=== PATIENT | male | born 1930 | race African-American/Black ===

== ENCOUNTER 2016-12-23 09:15 | Inpatient (IN) | payer MEDICARE, BC ==
[~2016-12-23] VITALS: Ht 165.1 cm; Wt 54.9 kg
[~2016-12-23 09:15] MED LIST: AMLO5TAB4 PO; ASPI-1035 PO; AZOPT EACHEYE; CLOP75TA33 PO; COR25 PO; DUTA0.5C2 PO; ISOS60TA4 PO; OMEP40CA34 PO; ROSU5TAB3 PO; TELM80TA3 PO
[2016-12-23] MEDS ORDERED: SODIUM CHLORIDE 0.9% 1,000 ML IV ONE (09:27)
[2016-12-23 10:07] LABS: CHLORIDE 101 mEq/L (98-107); INDEX HEMOLYSI 1 (1-3); INDEX ICTERIC 1 (1-4); INDEX LIPEMIC 1 (1-3)
[2016-12-23 10:08] LABS: DIFFERENTIAL COMMENT 1; HEMATOCRIT. 21.6 % (42.0-52.0); HEMOGLOBIN. 7.2 g/dL (14.0-18.0); MEAN CORPUSCULAR HGB CONC 33.4 g/dL (31.0-37.0); MEAN CORPUSCULAR VOLUME 86.9 fL (80.0-94.0); MEAN PLATELET VOLUME 8.4 fl (7.4-10.4); PLATELET 251 x1000/uL (130-400); RED BLOOD CELL COUNT 2.48 mill/uL (4.7-6.1); RED CELL DISTRIBUTION WIDTH 17.3 % (11.6-14.6); WHITE BLOOD COUNT 14.1 x1000/uL (4.5-11.0)
[2016-12-23 10:10] LABS: ALBUMIN 1.9 g/dL (3.4-5.0); ANION GAP 14; CALCIUM 8.1 mg/dL (8.5-10.1); CARBON DIOXIDE 27 mEq/L (21-32); INR 1.2; UREA NITROGEN BLOOD 47 mg/dL (7-21)
[2016-12-23 10:13] LABS: AMMONIA 20 uMol/L (<32)
[2016-12-23 10:18] LABS: ALANINE AMINOTRANSFERASE 14 IU/L (13-61); eGFR 19 mL/min (>60)
[2016-12-23 10:43] LABS: PLATELET ESTIMATE NORMAL; ROULEAUX 1+
[2016-12-23 10:44] LABS: ANISOCYTOSIS 1+
[2016-12-23 10:57] LABS: BG BASE EXCESS 3.9 mmol/L (-2.0-2.0); BG CARBOXYHEMOGLOBIN 0.3 % (0.5-1.5); BG DEOXYHEMOGLOBIN 0.6 % (0.0-5.0); BG FRACTION INSPIRED OXYGEN 100; BG HCO3 ACT 26.7 mmol/L (22.0-26.0); BG METHEMOGLOBIN 0.6 % (0.0-1.5); BG OXYGEN SATURATION 99.4 % (92.0-98.5); BG OXYHEMOGLOBIN 98.5 % (94.0-97.0); BG PCO2 32.3 mmHg (35.0-45.0); BG PH 7.535 (7.350-7.450); BG PO2 422.7 mmHg (75.0-100.0); BG SAMPLE SITE LEFT BRACHIAL; BG TOTAL HEMOGLOBIN 7.4 g/dL (12.0-18.0); BG VENT MODE MASK - NRB
[2016-12-23 18:48] VITALS: BP 106/62
[2016-12-23 19:30] VITALS: BP 106/40
[2016-12-23 20:00] VITALS: BP 101/50
[2016-12-23 22:41] VITALS: BP 91/59
[2016-12-23 22:56] VITALS: BP 97/50
[2016-12-23 23:56] VITALS: BP 108/55
[2016-12-24] VITALS (10 sets, daily range): BP systolic 91–118; BP diastolic 45–60
[2016-12-24 07:22] LABS: BASOPHILS % 0.5 % (0.0-2.0); EOSINOPHILS % 3.3 % (0.0-5.0); HEMATOCRIT. 26.6 % (42.0-52.0); LYMPHOCYTES % 10.8 % (20.0-50.0); MEAN CORPUSCULAR HEMOGLOBIN 28.8 pg (28.0-32.0); MEAN CORPUSCULAR HGB CONC 33.8 g/dL (31.0-37.0); MEAN CORPUSCULAR VOLUME 85.3 fL (80.0-94.0); MEAN PLATELET VOLUME 8.8 fl (7.4-10.4); MONOCYTES % 11.5 % (2.0-8.0); NEUTROPHILS % 73.9 % (40.0-76.0); PLATELET 178 x1000/uL (130-400); RED BLOOD CELL COUNT 3.12 mill/uL (4.7-6.1); WHITE BLOOD COUNT 11.8 x1000/uL (4.5-11.0)
[2016-12-24 08:03] LABS: CALCIUM 8.4 mg/dL (8.5-10.1)
[2016-12-24] MEDS ORDERED: POTASSIUM CHLORIDE 20MEQ TABLET SR PO SCH (08:45)
[2016-12-24] MEDS ORDERED: NAPROXEN 500MG TABLET PO PRN (08:45)
[2016-12-24] MEDS ORDERED: MORPHINE SULFATE 2 MG/ML CPJ (NOT FOR IM USE) IV PRN ×2 (11:15→14:33)
[2016-12-25] VITALS: BP 113/62
[2016-12-25 04:00] VITALS: BP 118/55
[2016-12-25 08:00] VITALS: BP 101/55
[2016-12-25 12:00] VITALS: BP 120/69
[2016-12-25 16:00] VITALS: BP 113/65
[2016-12-25 18:00] LABS: BG CARBOXYHEMOGLOBIN 0.3 % (0.5-1.5); BG DEOXYHEMOGLOBIN 0.8 % (0.0-5.0); BG HCO3 ACT 24.1 mmol/L (22.0-26.0); BG METHEMOGLOBIN 0.4 % (0.0-1.5); BG OXYGEN SATURATION 99.2 % (92.0-98.5); BG OXYHEMOGLOBIN 98.5 % (94.0-97.0); BG PCO2 37.5 mmHg (35.0-45.0); BG PH 7.426 (7.350-7.450); BG PO2 213.1 mmHg (75.0-100.0); BG SAMPLE SITE RIGHT BRACHIAL; BG VENT MODE NASAL CANNULA
[2016-12-25 20:00] VITALS: BP 106/50
[2016-12-25] MEDS: FOLIC ACID/VITAMIN B COMP W-C TABLET PO SCH (21:48)
[2016-12-25] MEDS: ZINC SULFATE 220 MG ( 50 ) CAPSULE PO SCH (21:48)
[2016-12-25] MEDS: ASCORBIC ACID 500 MG TABLET PO SCH (21:48)
[2016-12-26] VITALS: BP 116/65
[2016-12-26 04:00] VITALS: BP 110/60
[2016-12-26 07:15] LABS: CALCIUM 9.1 mg/dL (8.5-10.1)
[2016-12-26 07:59] VITALS: BP 132/71
[2016-12-26 09:19] LABS: BASOPHILS % 0.6 % (0.0-2.0); EOSINOPHILS % 3.2 % (0.0-5.0); HEMATOCRIT. 28.1 % (42.0-52.0); HEMOGLOBIN. 9.3 g/dL (14.0-18.0); LYMPHOCYTES % 9.2 % (20.0-50.0); MEAN CORPUSCULAR HEMOGLOBIN 29.4 pg (28.0-32.0); MEAN CORPUSCULAR HGB CONC 33.1 g/dL (31.0-37.0); MEAN CORPUSCULAR VOLUME 88.8 fL (80.0-94.0); MONOCYTES % 11.1 % (2.0-8.0); NEUTROPHILS % 75.9 % (40.0-76.0); RED BLOOD CELL COUNT 3.17 mill/uL (4.7-6.1); RED CELL DISTRIBUTION WIDTH 16.4 % (11.6-14.6); WHITE BLOOD COUNT 16.1 x1000/uL (4.5-11.0)
[2016-12-26 09:21] LABS: DIFFERENTIAL COMMENT 1
[2016-12-26 09:22] LABS: ADD RBC MORPHOLOGY YES
[2016-12-26] MEDS: ZINC SULFATE 220 MG ( 50 ) CAPSULE PO SCH (09:22)
[2016-12-26] MEDS: FOLIC ACID/VITAMIN B COMP W-C TABLET PO SCH (09:22)
[2016-12-26] MEDS: ASCORBIC ACID 500 MG TABLET PO SCH (09:22)
[2016-12-26 11:06] LABS: PLATELET SATELLITISM 2+
[2016-12-26 12:21] VITALS: BP 130/78
[2016-12-26 16:00] VITALS: BP 128/64
[2016-12-26 20:43] VITALS: BP 124/65
[2016-12-26] MEDS ORDERED: EPOETIN ALFA 10000UNITS/ML VIAL SUBCUT SCH (21:00)
[2016-12-26] MEDS ORDERED: HYDROXYZINE 25MG TABLET PO ONE (22:15)
[2016-12-26] MEDS ORDERED: GABAPENTIN 300MG CAPSULE PO SCH (22:15)
[2016-12-26] MEDS ORDERED: HYDROXYZINE 25MG TABLET PO NR (23:15)
[2016-12-26] MEDS: PREGABALIN 25MG CAPSULE PO SCH (23:26)
[2016-12-27 00:18] VITALS: BP 144/65
[2016-12-27 04:00] VITALS: BP 117/68
[2016-12-27 08:00] VITALS: BP 118/51
[2016-12-27] MEDS: PREGABALIN 25MG CAPSULE PO SCH (08:31)
[2016-12-27] MEDS: HYDROXYZINE 25MG TABLET PO SCH ×2 (08:31→17:45)
[2016-12-27] MEDS: FOLIC ACID/VITAMIN B COMP W-C TABLET PO SCH (08:32)
[2016-12-27] MEDS: ZINC SULFATE 220 MG ( 50 ) CAPSULE PO SCH (08:32)
[2016-12-27 12:00] VITALS: BP 141/62
[2016-12-27 16:11] VITALS: BP 130/63
[2016-12-27 20:00] VITALS: BP 135/50
[2016-12-27] MEDS: CARVEDILOL 3.125 MG TABLET PO SCH (21:25)
[2016-12-28 00:03] VITALS: BP 130/50
[2016-12-28 04:38] VITALS: BP 145/69
[2016-12-28 07:08] LABS: BASOPHILS % 0.6 % (0.0-2.0); EOSINOPHILS % 4.5 % (0.0-5.0); HEMATOCRIT. 27.9 % (42.0-52.0); HEMOGLOBIN. 9.1 g/dL (14.0-18.0); LYMPHOCYTES % 12.3 % (20.0-50.0); MEAN CORPUSCULAR HEMOGLOBIN 29.1 pg (28.0-32.0); MEAN CORPUSCULAR HGB CONC 32.7 g/dL (31.0-37.0); MEAN CORPUSCULAR VOLUME 88.9 fL (80.0-94.0); MONOCYTES % 10.3 % (2.0-8.0); NEUTROPHILS % 72.3 % (40.0-76.0); RED BLOOD CELL COUNT 3.14 mill/uL (4.7-6.1); RED CELL DISTRIBUTION WIDTH 16.9 % (11.6-14.6); WHITE BLOOD COUNT 14.1 x1000/uL (4.5-11.0)
[2016-12-28 07:27] LABS: CALCIUM 9.4 mg/dL (8.5-10.1); PHOSPHORUS 2.6 mg/dL (2.5-4.9)
[2016-12-28 07:35] LABS: DIFFERENTIAL COMMENT 1
[2016-12-28 07:36] LABS: ADD RBC MORPHOLOGY YES
[2016-12-28 08:00] VITALS: BP 113/52
[2016-12-28] MEDS: ISOSORBIDE MONONITRATE 30MG TABLET SR 24HR PO SCH (09:00)
[2016-12-28] MEDS: CARVEDILOL 3.125 MG TABLET PO SCH ×2 (09:00→20:23)
[2016-12-28] MEDS: HYDROXYZINE 25MG TABLET PO SCH ×2 (09:10→17:22)
[2016-12-28] MEDS: ZINC SULFATE 220 MG ( 50 ) CAPSULE PO SCH (09:10)
[2016-12-28] MEDS: PREGABALIN 25MG CAPSULE PO SCH (09:10)
[2016-12-28] MEDS: FOLIC ACID/VITAMIN B COMP W-C TABLET PO SCH (09:10)
[2016-12-28 12:00] VITALS: BP 113/54
[2016-12-28 16:00] VITALS: BP 140/66
[2016-12-28 20:00] VITALS: BP 127/83
[2016-12-28 20:36] LABS: PLATELET SATELLITISM 2+
[2016-12-28 20:37] LABS: ANISOCYTOSIS 1+
[2016-12-28] MEDS ORDERED: EPOETIN ALFA 4000UNITS/ML VIAL SUBCUT SCH (21:00)
[2016-12-29] VITALS: BP 132/62
[2016-12-29 04:00] VITALS: BP 120/70
[2016-12-29 08:00] VITALS: BP 133/47
[2016-12-29] MEDS: ZINC SULFATE 220 MG ( 50 ) CAPSULE PO SCH (11:17)
[2016-12-29] MEDS: FOLIC ACID/VITAMIN B COMP W-C TABLET PO SCH (11:17)
[2016-12-29] MEDS: PREGABALIN 25MG CAPSULE PO SCH (11:17)
[2016-12-29] MEDS: HYDROXYZINE 25MG TABLET PO SCH ×2 (11:19→17:00)
[2016-12-29] MEDS: ISOSORBIDE MONONITRATE 30MG TABLET SR 24HR PO SCH (11:20)
[2016-12-29] MEDS: CARVEDILOL 3.125 MG TABLET PO SCH (11:20)
[2016-12-29 12:00] VITALS: BP 126/57
[2016-12-29 16:00] VITALS: BP 104/51
[2016-12-29 17:17] VITALS: BP 104/51
== END 2016-12-29 17:45 | disposition home health service (06) | DRG 871 ==
LOC: ER 09:34 → 6WST 10:40 → ER 17:56
PROVIDERS: ADMIT Internal Medicine; ATTEND Internal Medicine
PROC: 30233N1 Transfusion of Nonautologous Red Blood Cells into Peripheral Vein, Percutaneous Approach (ICD-10-PCS; principal; 2016-12-23)
PROC: 5A1D60Z (ICD-10-PCS; 2016-12-25)
DX: A41.9 Sepsis, unspecified organism (principal); J18.9 Pneumonia, unspecified organism; N18.6 End stage renal disease; L89.154 Pressure ulcer of sacral region, stage 4; G93.40 Encephalopathy, unspecified; I50.43 Acute on chronic combined systolic (congestive) and diastolic (congestive) heart failure; I13.2 Hypertensive heart and chronic kidney disease with heart failure and with stage 5 chronic kidney disease, or end stage renal disease; E46 Unspecified protein-calorie malnutrition; I25.10 Atherosclerotic heart disease of native coronary artery without angina pectoris; E87.6 Hypokalemia; F32.9 Major depressive disorder, single episode, unspecified; G62.9 Polyneuropathy, unspecified; D63.8 Anemia in other chronic diseases classified elsewhere; L89.610 Pressure ulcer of right heel, unstageable; L89.620 Pressure ulcer of left heel, unstageable; I73.9 Peripheral vascular disease, unspecified; J44.9 Chronic obstructive pulmonary disease, unspecified; F03.90 Unspecified dementia, unspecified severity, without behavioral disturbance, psychotic disturbance, mood disturbance, and anxiety; Z99.2 Dependence on renal dialysis; Z79.899 Other long term (current) drug therapy; Z85.46 Personal history of malignant neoplasm of prostate; Z86.73 Personal history of transient ischemic attack (TIA), and cerebral infarction without residual deficits; Z87.01 Personal history of pneumonia (recurrent); Z93.1 Gastrostomy status; Z95.810 Presence of automatic (implantable) cardiac defibrillator; Z68.20 Body mass index [BMI] 20.0-20.9, adult; Z79.82 Long term (current) use of aspirin; I25.2 Old myocardial infarction
CPT/HCPCS: 36415; 36600; 70450; 71010; 80048; 80053; 82140; 82375; 82805; 82962; 83605; 84100; 84443; 85025; 85610; 86850; 86900; 86920; 87040; 87086; 87493; 92610; 93005; 94760; 99285; A6261; J0885; J2270; J7030; J7040; P9016

== ENCOUNTER 2017-01-03 18:55 | Observation (INO) | payer MEDICARE, BC ==
[~2017-01-03] VITALS: Ht 177.8 cm; Wt 74.8 kg
[~2017-01-03 18:55] MED LIST changes: -AMLO5TAB4 PO; -TELM80TA3 PO
[2017-01-03] MEDS ORDERED: SODIUM CHLORIDE 0.9% 500 ML IV ONE (19:04)
[2017-01-03 19:31] LABS: BASOPHILS % 0.8 % (0.0-2.0); EOSINOPHILS % 3.6 % (0.0-5.0); HEMATOCRIT. 23.3 % (42.0-52.0); HEMOGLOBIN. 7.8 g/dL (14.0-18.0); LYMPHOCYTES % 12.8 % (20.0-50.0); MEAN CORPUSCULAR HEMOGLOBIN 29.2 pg (28.0-32.0); MEAN CORPUSCULAR HGB CONC 33.5 g/dL (31.0-37.0); MEAN CORPUSCULAR VOLUME 87.1 fL (80.0-94.0); MEAN PLATELET VOLUME 9.3 fl (7.4-10.4); MONOCYTES % 12.2 % (2.0-8.0); NEUTROPHILS % 70.6 % (40.0-76.0); PLATELET 270 x1000/uL (130-400); RED BLOOD CELL COUNT 2.67 mill/uL (4.7-6.1); RED CELL DISTRIBUTION WIDTH 16.6 % (11.6-14.6)
[2017-01-03 19:36] LABS: INR 1.2; PROTHROMBIN TIME 12.2 sec
[2017-01-03 19:43] LABS: ALANINE AMINOTRANSFERASE 8 IU/L (13-61); ALBUMIN 1.9 g/dL (3.4-5.0); ANION GAP 7; CARBON DIOXIDE 36 mEq/L (21-32); CHLORIDE 98 mEq/L (98-107); INDEX HEMOLYSI 1 (1-3); INDEX ICTERIC 1 (1-4); INDEX LIPEMIC 1 (1-3); UREA NITROGEN BLOOD 12 mg/dL (7-21); eGFR 34 mL/min (>60)
[2017-01-03 19:45] LABS: TROPONIN I 0.02 ng/mL (0.00-0.04)
[2017-01-03] MEDS ORDERED: PANTOPRAZOLE SODIUM 40 MG/VIAL IV STA (19:46)
[2017-01-03] MEDS ORDERED: PANTOPRAZOLE 80 MG in SODIUM CHLORIDE 0.9% 100 ML IV STA (19:46)
[2017-01-04 05:50] VITALS: BP 122/61
[2017-01-04 08:00] VITALS: BP 109/46
[2017-01-04 08:45] VITALS: BP 109/46
[2017-01-04 09:09] LABS: BASOPHILS % 0.8 % (0.0-2.0); EOSINOPHILS % 5.3 % (0.0-5.0); HEMATOCRIT. 31.7 % (42.0-52.0); HEMOGLOBIN. 10.7 g/dL (14.0-18.0); LYMPHOCYTES % 11.7 % (20.0-50.0); MEAN CORPUSCULAR HEMOGLOBIN 28.8 pg (28.0-32.0); MEAN CORPUSCULAR HGB CONC 33.9 g/dL (31.0-37.0); MEAN CORPUSCULAR VOLUME 85.2 fL (80.0-94.0); MEAN PLATELET VOLUME 8.9 fl (7.4-10.4); MONOCYTES % 12.9 % (2.0-8.0); NEUTROPHILS % 69.3 % (40.0-76.0); PLATELET 262 x1000/uL (130-400); RED BLOOD CELL COUNT 3.72 mill/uL (4.7-6.1); RED CELL DISTRIBUTION WIDTH 16.1 % (11.6-14.6); WHITE BLOOD COUNT 7.4 x1000/uL (4.5-11.0)
[2017-01-04 11:32] VITALS: BP 110/60
[2017-01-04 12:00] VITALS: BP 126/67
== END 2017-01-04 14:30 | disposition home or self-care (01) ==
LOC: ER 19:04 → INTOOBSV 23:54 → 6WST 23:54
PROVIDERS: ADMIT Internal Medicine; ATTEND Internal Medicine
DX: D63.1 Anemia in chronic kidney disease (principal); N18.6 End stage renal disease; I12.0 Hypertensive chronic kidney disease with stage 5 chronic kidney disease or end stage renal disease; J44.9 Chronic obstructive pulmonary disease, unspecified; Z99.2 Dependence on renal dialysis
CPT/HCPCS: 36415; 36430; 71010; 80053; 84484; 85025; 85610; 86850; 86900; 86901; 86920; 93005; 96361; 96365; 96366; 96375; 99285; C9113; G0378; J7040; P9016; 96376; J7050

== ENCOUNTER 2017-03-16 14:54 | Inpatient (IN) | payer MEDICARE, BC ==
[~2017-03-16] VITALS: Ht 167.6 cm; Wt 61.2 kg
[2017-03-16] MEDS ORDERED: METHYLPREDNISOLONE SOD SUCC 125 MG/2 ML VIAL IV STA (15:00)
[2017-03-16] MEDS ORDERED: IPRATROPIUM BROMIDE (0.02%) 0.5MG/2.5ML NEB HHN STA (15:00)
[2017-03-16] MEDS ORDERED: LEVOFLOXACIN 750MG PREMIX 150 ML IV ONE (15:00)
[2017-03-16] MEDS ORDERED: ALBUTEROL (0.083%) 2.5MG/3ML NEB HHN STA (15:00)
[2017-03-16] MEDS ORDERED: FUROSEMIDE 40MG/4ML VIAL IV STA (15:00)
[2017-03-16 15:27] LABS: BG BASE EXCESS 0.8 mmol/L (-2.0-2.0); BG CARBOXYHEMOGLOBIN 0.5 % (0.5-1.5); BG DEOXYHEMOGLOBIN 5.5 % (0.0-5.0); BG FRACTION INSPIRED OXYGEN 32; BG HCO3 ACT 24.8 mmol/L (22.0-26.0); BG METHEMOGLOBIN 0.3 % (0.0-1.5); BG OXYGEN SATURATION 94.5 % (92.0-98.5); BG OXYHEMOGLOBIN 93.7 % (94.0-97.0); BG PCO2 37.4 mmHg (35.0-45.0); BG PO2 73.9 mmHg (75.0-100.0); BG SAMPLE SITE RIGHT BRACHIAL; BG TOTAL HEMOGLOBIN 11.7 g/dL (12.0-18.0); BG VENT MODE NASAL CANNULA
[2017-03-16 15:30] LABS: BASOPHILS % 0.2 % (0.0-2.0); EOSINOPHILS % 0.7 % (0.0-5.0); HEMATOCRIT. 34.2 % (42.0-52.0); HEMOGLOBIN. 11.2 g/dL (14.0-18.0); LYMPHOCYTES % 7.7 % (20.0-50.0); MEAN CORPUSCULAR HEMOGLOBIN 29.2 pg (28.0-32.0); MEAN CORPUSCULAR HGB CONC 32.8 g/dL (31.0-37.0); MEAN PLATELET VOLUME 7.2 fl (7.4-10.4); MONOCYTES % 10.4 % (2.0-8.0); PLATELET 348 x1000/uL (130-400); RED BLOOD CELL COUNT 3.84 mill/uL (4.7-6.1); RED CELL DISTRIBUTION WIDTH 19.1 % (11.6-14.6); WHITE BLOOD COUNT 17.7 x1000/uL (4.5-11.0)
[2017-03-16 15:35] LABS: INR 1.2; PARTIAL THROMBOPLASTIN TIME 28.9 sec (24.0-34.0); PROTHROMBIN TIME 12.8 sec
[2017-03-16 15:44] LABS: ALANINE AMINOTRANSFERASE < 6 IU/L (13-61); ALBUMIN 2.1 g/dL (3.4-5.0); ANION GAP 14; CALCIUM 8.3 mg/dL (8.5-10.1); CARBON DIOXIDE 28 mEq/L (21-32); CHLORIDE 95 mEq/L (98-107); CREATINE KINASE 29 IU/L (39-308); INDEX HEMOLYSI 1 (1-3); INDEX ICTERIC 1 (1-4); INDEX LIPEMIC 1 (1-3); LIPASE 162 IU/L (73-393); TROPONIN I < 0.02 ng/mL (0.00-0.04); UREA NITROGEN BLOOD 31 mg/dL (7-21); eGFR 16 mL/min (>60)
[2017-03-16 15:46] LABS: LACTIC ACID 3.6 mmol/L (0.4-2.0)
[2017-03-16 15:56] LABS: NT PRO B-TYPE NATRIURETIC PEP 112601 pg/mL (5-125)
[2017-03-16] MEDS ORDERED: INSULIN REGULAR (HUMULIN R) 300UNITS/3ML IV ONE (16:00)
[2017-03-16] MEDS ORDERED: SODIUM BICARBONATE 8.4% 1 MEQ/ML 50ML SYR IV ONE (16:00)
[2017-03-16] MEDS ORDERED: DEXTROSE 50% WATER 50ML SYRINGE IV ONE ×2 (16:00→20:00)
[2017-03-16] MEDS ORDERED: SODIUM POLYSTYRENE SULFONATE 15 G/60 ML BOT PO ONE (16:00)
[2017-03-16] MEDS ORDERED: CALCIUM CHLORIDE 1GM/10ML SYR IV ONE (16:00)
[2017-03-16] MEDS ORDERED: MORPHINE SULFATE 4 MG/ML CPJ (NOT FOR IM USE) IV ONE (16:30)
[2017-03-16] MEDS ORDERED: ONDANSETRON HCL 4MG/2ML VIAL IV ONE (16:30)
[2017-03-16 20:00] VITALS: BP 159/61
[2017-03-16 21:10] VITALS: BP 159/61
[2017-03-16] MEDS ORDERED: PNEUMOCOCCAL 23-VAL P-SAC VAC 0.5 ML IM ONE (22:45)
[2017-03-17] VITALS: BP 145/73
[2017-03-17] MEDS ORDERED: ONDANSETRON HCL 4MG/2ML VIAL IV PRN (00:30)
[2017-03-17] MEDS ORDERED: ACETAMINOPHEN 325MG TABLET PO PRN (00:30)
[2017-03-17] MEDS ORDERED: TEMAZEPAM 15MG CAPSULE PO PRN (00:30)
[2017-03-17 04:00] VITALS: BP 120/71
[2017-03-17 06:54] LABS: BASOPHILS % 0.1 % (0.0-2.0); HEMOGLOBIN. 11.6 g/dL (14.0-18.0); LYMPHOCYTES % 7.6 % (20.0-50.0); MEAN CORPUSCULAR HEMOGLOBIN 29.6 pg (28.0-32.0); MEAN CORPUSCULAR HGB CONC 33.1 g/dL (31.0-37.0); MEAN CORPUSCULAR VOLUME 89.3 fL (80.0-94.0); MEAN PLATELET VOLUME 7.5 fl (7.4-10.4); MONOCYTES % 3.5 % (2.0-8.0); NEUTROPHILS % 88.8 % (40.0-76.0); PLATELET 284 x1000/uL (130-400); RED BLOOD CELL COUNT 3.92 mill/uL (4.7-6.1); RED CELL DISTRIBUTION WIDTH 19.2 % (11.6-14.6); WHITE BLOOD COUNT 7.3 x1000/uL (4.5-11.0)
[2017-03-17 07:55] LABS: ALBUMIN 2.3 g/dL (3.4-5.0); BILIRUBIN DIRECT 0.1 mg/dL (0.0-0.2); CALCIUM 9.4 mg/dL (8.5-10.1); PHOSPHORUS 3.3 mg/dL (2.5-4.9)
[2017-03-17 08:00] VITALS: BP 153/68
[2017-03-17] MEDS ORDERED: MEDICATION NOT ON FORMULARY EA (Brinzolamide (Azopt) 1 DROP) EACHEYE SCH (09:00)
[2017-03-17] MEDS ORDERED: MEDICATION NOT ON FORMULARY EA (Rosuvastatin Calcium (Crestor) 1 TAB) PO SCH (09:00)
[2017-03-17] MEDS: CLOPIDOGREL 75MG TABLET PO SCH (09:06)
[2017-03-17] MEDS: FOLIC ACID/VITAMIN B COMP W-C TABLET PO SCH (09:06)
[2017-03-17] MEDS: ISOSORBIDE MONONITRATE 60MG TABLET SR 24HR PO SCH (09:07)
[2017-03-17] MEDS: OMEPRAZOLE 20MG CAPSULE EXTENDED RELEASE PO SCH (09:08)
[2017-03-17] MEDS: ASPIRIN 81MG EC TABLET PO SCH (09:08)
[2017-03-17] MEDS: CARVEDILOL 25MG TABLET PO SCH ×2 (09:08→20:41)
[2017-03-17] MEDS: DUTASTERIDE 0.5MG CAPSULE PO SCH (09:13)
[2017-03-17] MEDS: SEVELAMER CARBONATE 800 MG TABLET PO SCH ×3 (09:13→18:10)
[2017-03-17] MEDS: DORZOLAMIDE 2% OPHTH 10 ML BOTTLE BOTHEYE SCH (09:16)
[2017-03-17 12:00] VITALS: BP 105/48
[2017-03-17] MEDS ORDERED: ALBUTEROL (0.083%) 2.5MG/3ML NEB HHN PRN (13:00)
[2017-03-17] MEDS: ALBUTEROL (0.083%) 2.5MG/3ML NEB HHN SCH (13:41)
[2017-03-17] MEDS: PIPERACILLIN/TAZ 2.25G PREMIX 50 ML IV SCH (15:53)
[2017-03-17 16:00] VITALS: BP 129/82
[2017-03-17 17:33] LABS: CLARITY URINE TURBID (CLEAR); COLOR URINE YELLOW (YELLOW); GLUCOSE URINE NEGATIVE (NEGATIVE); KETONES URINE NEGATIVE (NEGATIVE); LEUKOCYTE ESTERASE URINE 3+ (NEGATIVE); NITRITE URINE NEGATIVE (NEGATIVE); OCCULT BLOOD URINE 3+ (NEGATIVE); PROTEIN URINE 2+ (NEGATIVE); UROBILINOGEN URINE 0.2 E.U./dL (0.2-1.0)
[2017-03-17 17:50] LABS: BACTERIA URINE 1+; RBC URINE 25-50 /hpf (0-2); SQUAMOUS EPITHELIAL CELL URINE FEW /lpf (RARE/1+); WBC URINE TNTC /hpf (0-2)
[2017-03-17 20:00] VITALS: BP 127/70
[2017-03-17] MEDS: ATORVASTATIN CALCIUM 10MG TABLET PO SCH (21:49)
[2017-03-17] MEDS ORDERED: HEPARIN SODIUM 1,000 UNIT/1ML VIAL IV NR (22:00)
[2017-03-18] VITALS (7 sets, daily range): BP systolic 123–178; BP diastolic 69–94
[2017-03-18] MEDS: PIPERACILLIN/TAZ 2.25G PREMIX 50 ML IV SCH ×4 (00:03→20:55)
[2017-03-18] MEDS: HYDROCODONE/ACETAMINOPHEN 5/325MG TABLET PO PRN ×2 (00:04→00:23)
[2017-03-18] MEDS: ALBUTEROL (0.083%) 2.5MG/3ML NEB HHN SCH ×2 (00:55→13:19)
[2017-03-18 06:20] LABS: HEMATOCRIT. 29.6 % (42.0-52.0); HEMOGLOBIN. 9.9 g/dL (14.0-18.0); MEAN CORPUSCULAR HEMOGLOBIN 29.5 pg (28.0-32.0); MEAN CORPUSCULAR HGB CONC 33.4 g/dL (31.0-37.0); MEAN CORPUSCULAR VOLUME 88.3 fL (80.0-94.0); MEAN PLATELET VOLUME 7.5 fl (7.4-10.4); PLATELET 271 x1000/uL (130-400); RED BLOOD CELL COUNT 3.36 mill/uL (4.7-6.1); RED CELL DISTRIBUTION WIDTH 19.1 % (11.6-14.6); WHITE BLOOD COUNT 8.4 x1000/uL (4.5-11.0)
[2017-03-18 06:58] LABS: CALCIUM 8.6 mg/dL (8.5-10.1); PREALBUMIN 13.1 mg/dL (20.0-40.0); T4 FREE 1.24 ng/dL (0.76-1.46)
[2017-03-18 07:03] LABS: T3 FREE 0.66 pg/ml (2.18-3.98); THYROID STIMULATING HORMONE 1.5 uIU/mL (0.36-3.74)
[2017-03-18 09:41] LABS: BG BASE EXCESS 1.4 mmol/L (-2.0-2.0); BG CARBOXYHEMOGLOBIN 0.3 % (0.5-1.5); BG DEOXYHEMOGLOBIN 3.8 % (0.0-5.0); BG FRACTION INSPIRED OXYGEN 21; BG HCO3 ACT 25.2 mmol/L (22.0-26.0); BG METHEMOGLOBIN 0.5 % (0.0-1.5); BG OXYGEN SATURATION 96.2 % (92.0-98.5); BG OXYHEMOGLOBIN 95.4 % (94.0-97.0); BG PCO2 36.9 mmHg (35.0-45.0); BG PH 7.453 (7.350-7.450); BG PO2 86.9 mmHg (75.0-100.0); BG SAMPLE SITE LEFT RADIAL; BG TOTAL HEMOGLOBIN 10.8 g/dL (12.0-18.0); BG VENT MODE ROOM AIR
[2017-03-18] MEDS ORDERED: LOSARTAN POTASSIUM 50 MG TABLET PO SCH (10:00)
[2017-03-18] MEDS: CLOPIDOGREL 75MG TABLET PO SCH (11:00)
[2017-03-18] MEDS: OMEPRAZOLE 20MG CAPSULE EXTENDED RELEASE PO SCH (11:00)
[2017-03-18] MEDS: ISOSORBIDE MONONITRATE 60MG TABLET SR 24HR PO SCH (11:01)
[2017-03-18] MEDS: ASPIRIN 81MG EC TABLET PO SCH (11:02)
[2017-03-18] MEDS: FOLIC ACID/VITAMIN B COMP W-C TABLET PO SCH (11:02)
[2017-03-18] MEDS: SEVELAMER CARBONATE 800 MG TABLET PO SCH ×3 (11:02→17:46)
[2017-03-18] MEDS: CARVEDILOL 25MG TABLET PO SCH ×2 (11:02→20:39)
[2017-03-18] MEDS: DUTASTERIDE 0.5MG CAPSULE PO SCH (11:02)
[2017-03-18] MEDS: DORZOLAMIDE 2% OPHTH 10 ML BOTTLE BOTHEYE SCH (11:03)
[2017-03-18] MEDS: ATORVASTATIN CALCIUM 10MG TABLET PO SCH (20:39)
[2017-03-19] VITALS: BP 140/69
[2017-03-19] MEDS: ALBUTEROL (0.083%) 2.5MG/3ML NEB HHN SCH ×3 (01:34→20:34)
[2017-03-19 04:00] VITALS: BP 154/74
[2017-03-19] MEDS: PIPERACILLIN/TAZ 2.25G PREMIX 50 ML IV SCH ×3 (06:05→22:18)
[2017-03-19 08:00] VITALS: BP 155/62
[2017-03-19 09:33] LABS: BASOPHILS % 0.1 % (0.0-2.0); EOSINOPHILS % 0.5 % (0.0-5.0); HEMATOCRIT. 32.7 % (42.0-52.0); HEMOGLOBIN. 10.7 g/dL (14.0-18.0); LYMPHOCYTES % 13.6 % (20.0-50.0); MEAN CORPUSCULAR HGB CONC 32.8 g/dL (31.0-37.0); MEAN CORPUSCULAR VOLUME 88.5 fL (80.0-94.0); MEAN PLATELET VOLUME 7.2 fl (7.4-10.4); MONOCYTES % 14.5 % (2.0-8.0); NEUTROPHILS % 71.3 % (40.0-76.0); PLATELET 272 x1000/uL (130-400); RED BLOOD CELL COUNT 3.69 mill/uL (4.7-6.1); RED CELL DISTRIBUTION WIDTH 19.2 % (11.6-14.6)
[2017-03-19 09:59] LABS: CALCIUM 8.3 mg/dL (8.5-10.1)
[2017-03-19] MEDS: CLOPIDOGREL 75MG TABLET GT SCH (11:37)
[2017-03-19] MEDS: CARVEDILOL 25MG TABLET GT SCH ×2 (11:38→21:09)
[2017-03-19] MEDS: OMEPRAZOLE 20MG CAPSULE EXTENDED RELEASE PO SCH (11:38)
[2017-03-19] MEDS: ISOSORBIDE MONONITRATE 60MG TABLET SR 24HR PO SCH (11:38)
[2017-03-19] MEDS: DUTASTERIDE 0.5MG CAPSULE PO SCH (11:39)
[2017-03-19] MEDS: ASPIRIN 81MG EC TABLET PO SCH (11:39)
[2017-03-19] MEDS: LOSARTAN POTASSIUM 50 MG TABLET GT SCH (11:39)
[2017-03-19] MEDS: SEVELAMER CARBONATE 800 MG TABLET PO SCH ×3 (11:39→18:32)
[2017-03-19] MEDS: DORZOLAMIDE 2% OPHTH 10 ML BOTTLE BOTHEYE SCH (11:40)
[2017-03-19] MEDS: FOLIC ACID/VITAMIN B COMP W-C TABLET GT SCH (11:47)
[2017-03-19 12:00] VITALS: BP 156/67
[2017-03-19] MEDS ORDERED: ACETAMINOPHEN 325MG TABLET GT PRN (12:30)
[2017-03-19 16:00] VITALS: BP 128/64
[2017-03-19 20:00] VITALS: BP 144/67
[2017-03-19] MEDS: ATORVASTATIN CALCIUM 10MG TABLET GT SCH (21:08)
[2017-03-20 00:10] VITALS: BP 121/60
[2017-03-20 04:02] VITALS: BP 147/68
[2017-03-20] MEDS: PIPERACILLIN/TAZ 2.25G PREMIX 50 ML IV SCH ×3 (06:14→22:02)
[2017-03-20 06:24] LABS: BASOPHILS % 0.2 % (0.0-2.0); EOSINOPHILS % 1.2 % (0.0-5.0); HEMATOCRIT. 32.1 % (42.0-52.0); HEMOGLOBIN. 10.7 g/dL (14.0-18.0); LYMPHOCYTES % 15.3 % (20.0-50.0); MEAN CORPUSCULAR HEMOGLOBIN 29.3 pg (28.0-32.0); MEAN CORPUSCULAR HGB CONC 33.3 g/dL (31.0-37.0); MEAN CORPUSCULAR VOLUME 87.8 fL (80.0-94.0); MEAN PLATELET VOLUME 7.4 fl (7.4-10.4); MONOCYTES % 14.3 % (2.0-8.0); PLATELET 271 x1000/uL (130-400); RED BLOOD CELL COUNT 3.65 mill/uL (4.7-6.1); WHITE BLOOD COUNT 9.8 x1000/uL (4.5-11.0)
[2017-03-20 06:47] LABS: CALCIUM 8.2 mg/dL (8.5-10.1)
[2017-03-20] MEDS: ALBUTEROL (0.083%) 2.5MG/3ML NEB HHN SCH ×2 (07:58→20:05)
[2017-03-20 08:00] VITALS: BP 138/82
[2017-03-20] MEDS: DUTASTERIDE 0.5MG CAPSULE PO SCH (08:51)
[2017-03-20] MEDS: DORZOLAMIDE 2% OPHTH 10 ML BOTTLE BOTHEYE SCH (08:51)
[2017-03-20] MEDS: LOSARTAN POTASSIUM 50 MG TABLET GT SCH ×2 (08:52→09:00)
[2017-03-20] MEDS: SEVELAMER CARBONATE 800 MG TABLET PO SCH ×3 (08:52→17:45)
[2017-03-20] MEDS: FOLIC ACID/VITAMIN B COMP W-C TABLET GT SCH (08:52)
[2017-03-20] MEDS: ASPIRIN 81MG EC TABLET PO SCH (08:52)
[2017-03-20] MEDS: ISOSORBIDE MONONITRATE 60MG TABLET SR 24HR PO SCH (08:52)
[2017-03-20] MEDS: CLOPIDOGREL 75MG TABLET GT SCH (08:52)
[2017-03-20] MEDS: CARVEDILOL 25MG TABLET GT SCH ×3 (08:53→22:02)
[2017-03-20] MEDS: OMEPRAZOLE 20MG CAPSULE EXTENDED RELEASE PO SCH (08:53)
[2017-03-20] MEDS: HYDROCODONE/ACETAMINOPHEN 5/325MG TABLET GT PRN ×2 (10:20→14:38)
[2017-03-20 12:00] VITALS: BP 108/57
[2017-03-20 16:00] VITALS: BP 120/59
[2017-03-20 20:00] VITALS: BP 131/70
[2017-03-20] MEDS: ATORVASTATIN CALCIUM 10MG TABLET GT SCH (22:01)
[2017-03-20] MEDS: EPOETIN ALFA 10000UNITS/ML VIAL SUBCUT SCH (22:02)
[2017-03-21 00:15] VITALS: BP 138/65
[2017-03-21 04:02] VITALS: BP 143/94
[2017-03-21] MEDS: PIPERACILLIN/TAZ 2.25G PREMIX 50 ML IV SCH ×3 (05:33→21:34)
[2017-03-21 08:00] VITALS: BP 158/66
[2017-03-21] MEDS: ALBUTEROL (0.083%) 2.5MG/3ML NEB HHN SCH ×2 (08:15→19:57)
[2017-03-21] MEDS: DUTASTERIDE 0.5MG CAPSULE PO SCH (08:41)
[2017-03-21] MEDS: FOLIC ACID/VITAMIN B COMP W-C TABLET GT SCH (08:41)
[2017-03-21] MEDS: SEVELAMER CARBONATE 800 MG TABLET PO SCH ×3 (08:41→17:00)
[2017-03-21] MEDS: ASPIRIN 81MG EC TABLET PO SCH (08:42)
[2017-03-21] MEDS: CARVEDILOL 25MG TABLET GT SCH ×2 (08:42→21:35)
[2017-03-21] MEDS: CLOPIDOGREL 75MG TABLET GT SCH (08:42)
[2017-03-21] MEDS: FAMOTIDINE 20MG TABLET PO SCH (08:42)
[2017-03-21] MEDS: DORZOLAMIDE 2% OPHTH 10 ML BOTTLE BOTHEYE SCH (08:42)
[2017-03-21] MEDS: ISOSORBIDE MONONITRATE 60MG TABLET SR 24HR PO SCH (08:42)
[2017-03-21] MEDS: LOSARTAN POTASSIUM 50 MG TABLET GT SCH (08:42)
[2017-03-21 12:00] VITALS: BP 104/56
[2017-03-21 16:00] VITALS: BP 128/62
[2017-03-21 20:00] VITALS: BP 127/63
[2017-03-21] MEDS: ATORVASTATIN CALCIUM 10MG TABLET GT SCH (21:35)
[2017-03-22] VITALS: BP 128/92
[2017-03-22 04:00] VITALS: BP 140/64
[2017-03-22] MEDS: PIPERACILLIN/TAZ 2.25G PREMIX 50 ML IV SCH ×3 (05:45→21:33)
[2017-03-22 07:09] LABS: BASOPHILS % 0.4 % (0.0-2.0); DIFFERENTIAL COMMENT 0; EOSINOPHILS % 6.8 % (0.0-5.0); HEMATOCRIT. 32.2 % (42.0-52.0); HEMOGLOBIN. 10.8 g/dL (14.0-18.0); LYMPHOCYTES % 16.2 % (20.0-50.0); MEAN CORPUSCULAR HEMOGLOBIN 29.5 pg (28.0-32.0); MEAN CORPUSCULAR HGB CONC 33.4 g/dL (31.0-37.0); MEAN CORPUSCULAR VOLUME 88.2 fL (80.0-94.0); MEAN PLATELET VOLUME 7.2 fl (7.4-10.4); MONOCYTES % 9.9 % (2.0-8.0); NEUTROPHILS % 66.7 % (40.0-76.0); PLATELET 250 x1000/uL (130-400); RED BLOOD CELL COUNT 3.65 mill/uL (4.7-6.1); RED CELL DISTRIBUTION WIDTH 19.5 % (11.6-14.6); WHITE BLOOD COUNT 10.2 x1000/uL (4.5-11.0)
[2017-03-22 07:32] LABS: CALCIUM 8.3 mg/dL (8.5-10.1)
[2017-03-22 08:00] VITALS: BP 149/93
[2017-03-22] MEDS: FAMOTIDINE 20MG TABLET PO SCH (09:17)
[2017-03-22] MEDS: SEVELAMER CARBONATE 800 MG TABLET PO SCH ×3 (09:17→18:33)
[2017-03-22] MEDS: CLOPIDOGREL 75MG TABLET GT SCH (09:17)
[2017-03-22] MEDS: ISOSORBIDE MONONITRATE 60MG TABLET SR 24HR PO SCH (09:18)
[2017-03-22] MEDS: CARVEDILOL 25MG TABLET GT SCH ×2 (09:19→21:33)
[2017-03-22] MEDS: LOSARTAN POTASSIUM 50 MG TABLET GT SCH (09:20)
[2017-03-22] MEDS: ASPIRIN 81MG EC TABLET PO SCH (09:20)
[2017-03-22] MEDS: FOLIC ACID/VITAMIN B COMP W-C TABLET GT SCH (09:20)
[2017-03-22] MEDS: DUTASTERIDE 0.5MG CAPSULE PO SCH (09:23)
[2017-03-22] MEDS: DORZOLAMIDE 2% OPHTH 10 ML BOTTLE BOTHEYE SCH (09:24)
[2017-03-22 12:00] VITALS: BP 111/75
[2017-03-22] MEDS: ALBUTEROL (0.083%) 2.5MG/3ML NEB HHN SCH ×2 (12:37→20:52)
[2017-03-22 16:00] VITALS: BP 124/57
[2017-03-22 20:00] VITALS: BP 163/70
[2017-03-22] MEDS: ATORVASTATIN CALCIUM 10MG TABLET GT SCH (21:32)
[2017-03-22] MEDS: EPOETIN ALFA 10000UNITS/ML VIAL SUBCUT SCH (21:33)
[2017-03-23] VITALS: BP 151/68
[2017-03-23 04:00] VITALS: BP 145/73
[2017-03-23] MEDS: PIPERACILLIN/TAZ 2.25G PREMIX 50 ML IV SCH ×3 (05:28→21:05)
[2017-03-23 06:09] LABS: CALCIUM 8.1 mg/dL (8.5-10.1)
[2017-03-23] MEDS: ALBUTEROL (0.083%) 2.5MG/3ML NEB HHN SCH ×2 (07:53→21:30)
[2017-03-23 08:00] VITALS: BP 133/74
[2017-03-23] MEDS: CARVEDILOL 25MG TABLET GT SCH ×2 (08:12→21:05)
[2017-03-23] MEDS: ISOSORBIDE MONONITRATE 60MG TABLET SR 24HR PO SCH (08:12)
[2017-03-23] MEDS: LOSARTAN POTASSIUM 50 MG TABLET GT SCH (08:12)
[2017-03-23] MEDS: FAMOTIDINE 20MG TABLET PO SCH (08:29)
[2017-03-23] MEDS: ASPIRIN 81MG EC TABLET PO SCH (08:29)
[2017-03-23] MEDS: SEVELAMER CARBONATE 800 MG TABLET PO SCH ×3 (08:29→18:33)
[2017-03-23] MEDS: FOLIC ACID/VITAMIN B COMP W-C TABLET GT SCH (08:29)
[2017-03-23] MEDS: HYDROCODONE/ACETAMINOPHEN 5/325MG TABLET GT PRN (08:30)
[2017-03-23] MEDS: CLOPIDOGREL 75MG TABLET GT SCH (08:30)
[2017-03-23] MEDS: DORZOLAMIDE 2% OPHTH 10 ML BOTTLE BOTHEYE SCH (08:33)
[2017-03-23] MEDS: DUTASTERIDE 0.5MG CAPSULE PO SCH (08:33)
[2017-03-23 12:00] VITALS: BP 135/63
[2017-03-23 16:00] VITALS: BP 123/76
[2017-03-23 20:00] VITALS: BP 159/69
[2017-03-23] MEDS: ATORVASTATIN CALCIUM 10MG TABLET GT SCH (21:05)
[2017-03-24] VITALS: BP 130/83
[2017-03-24 04:00] VITALS: BP 131/68
[2017-03-24] MEDS: PIPERACILLIN/TAZ 2.25G PREMIX 50 ML IV SCH ×2 (05:16→13:14)
[2017-03-24 08:00] VITALS: BP 124/55
[2017-03-24] MEDS: DORZOLAMIDE 2% OPHTH 10 ML BOTTLE BOTHEYE SCH (09:54)
[2017-03-24] MEDS: DUTASTERIDE 0.5MG CAPSULE PO SCH (09:54)
[2017-03-24] MEDS: CLOPIDOGREL 75MG TABLET GT SCH (09:55)
[2017-03-24] MEDS: CARVEDILOL 25MG TABLET GT SCH (09:55)
[2017-03-24] MEDS: ISOSORBIDE MONONITRATE 60MG TABLET SR 24HR PO SCH (09:55)
[2017-03-24] MEDS: LOSARTAN POTASSIUM 50 MG TABLET GT SCH (09:55)
[2017-03-24] MEDS: SEVELAMER CARBONATE 800 MG TABLET PO SCH ×3 (09:55→17:58)
[2017-03-24] MEDS: ASPIRIN 81MG EC TABLET PO SCH (09:55)
[2017-03-24] MEDS: FOLIC ACID/VITAMIN B COMP W-C TABLET GT SCH (09:55)
[2017-03-24] MEDS: FAMOTIDINE 20MG TABLET PO SCH (09:55)
[2017-03-24] MEDS: HYDROCODONE/ACETAMINOPHEN 5/325MG TABLET GT PRN (11:29)
[2017-03-24] MEDS: ALBUTEROL (0.083%) 2.5MG/3ML NEB HHN SCH (11:48)
[2017-03-24 12:00] VITALS: BP 130/68
[2017-03-24 16:00] VITALS: BP 91/50
[2017-03-24 18:18] VITALS: BP 123/76
== END 2017-03-24 18:50 | disposition home or self-care (01) | DRG 853 ==
LOC: ER 14:54 → 7WST 17:06
PROVIDERS: ADMIT Internal Medicine Pulmonary Disease; ATTEND Internal Medicine Pulmonary Disease
PROC: 5A1D60Z (ICD-10-PCS; 2017-03-16)
PROC: 0KBP0ZZ Excision of Left Hip Muscle, Open Approach (ICD-10-PCS; principal; 2017-03-24)
PROC: 0KBN0ZZ Excision of Right Hip Muscle, Open Approach (ICD-10-PCS; 2017-03-24)
DX: A41.9 Sepsis, unspecified organism (principal); J96.91 Respiratory failure, unspecified with hypoxia; J18.9 Pneumonia, unspecified organism; N18.6 End stage renal disease; K85.90 Acute pancreatitis without necrosis or infection, unspecified; E44.1 Mild protein-calorie malnutrition; I13.2 Hypertensive heart and chronic kidney disease with heart failure and with stage 5 chronic kidney disease, or end stage renal disease; I50.22 Chronic systolic (congestive) heart failure; J44.0 Chronic obstructive pulmonary disease with (acute) lower respiratory infection; I42.9 Cardiomyopathy, unspecified; N39.0 Urinary tract infection, site not specified; L97.419 Non-pressure chronic ulcer of right heel and midfoot with unspecified severity; L97.429 Non-pressure chronic ulcer of left heel and midfoot with unspecified severity; C61 Malignant neoplasm of prostate; D64.9 Anemia, unspecified; E87.5 Hyperkalemia; I25.2 Old myocardial infarction; K57.90 Diverticulosis of intestine, part unspecified, without perforation or abscess without bleeding; I25.10 Atherosclerotic heart disease of native coronary artery without angina pectoris; I49.5 Sick sinus syndrome; I73.9 Peripheral vascular disease, unspecified; J45.909 Unspecified asthma, uncomplicated; L89.90 Pressure ulcer of unspecified site, unspecified stage; E03.9 Hypothyroidism, unspecified; K21.9 Gastro-esophageal reflux disease without esophagitis; K22.2 Esophageal obstruction; L89.159 Pressure ulcer of sacral region, unspecified stage; N31.2 Flaccid neuropathic bladder, not elsewhere classified; N32.0 Bladder-neck obstruction; R65.20 Severe sepsis without septic shock; Z87.891 Personal history of nicotine dependence; Z85.46 Personal history of malignant neoplasm of prostate; Z95.0 Presence of cardiac pacemaker; Z95.810 Presence of automatic (implantable) cardiac defibrillator; Z99.2 Dependence on renal dialysis; Z68.21 Body mass index [BMI] 21.0-21.9, adult
CPT/HCPCS: 36415; 36600; 51702; 71010; 80048; 80053; 80076; 81001; 82375; 82550; 82805; 82962; 83605; 83690; 83880; 84100; 84132; 84134; 84439; 84443; 84481; 84484; 85025; 85610; 85651; 85730; 87040; 87086; 93005; 94640; 94644; 94664; 96374; 96375; 96376; 97162; 97166; 99285; A6261; J0885; J1644; J1815; J1940; J1956; J2270; J2405; J2543; J2930; J3490; J7030; J7050; J7611

== ENCOUNTER 2017-05-06 07:36 | Inpatient (IN) | payer MEDICARE, BC ==
[~2017-05-06] VITALS: Ht 167.6 cm; Wt 55.8 kg
[~2017-05-06 07:36] MED LIST changes: -ASPI-1035 PO; +ASPI-1159 PO; +ROSU5TAB PO; -ROSU5TAB3 PO
[2017-05-06 08:28] LABS: HEMATOCRIT. 31.6 % (42.0-52.0); HEMOGLOBIN. 10.7 g/dL (14.0-18.0); MEAN CORPUSCULAR HEMOGLOBIN 30.5 pg (28.0-32.0); MEAN CORPUSCULAR VOLUME 89.9 fL (80.0-94.0); MEAN PLATELET VOLUME 7.2 fl (7.4-10.4); PLATELET 208 x1000/uL (130-400); RED BLOOD CELL COUNT 3.52 mill/uL (4.7-6.1); RED CELL DISTRIBUTION WIDTH 17.6 % (11.6-14.6)
[2017-05-06] MEDS ORDERED: ACETAMINOPHEN 650MG SUPP PR ONE (08:30)
[2017-05-06] MEDS: ALBUTEROL (0.083%) 2.5MG/3ML NEB HHN ONE ×2 (08:30→09:55)
[2017-05-06 08:34] LABS: CHLORIDE 95 mEq/L (98-107)
[2017-05-06 08:36] LABS: INR 1.1; PROTHROMBIN TIME 11.9 sec
[2017-05-06] MEDS ORDERED: FUROSEMIDE 100MG/10ML VIAL IV STA (08:40)
[2017-05-06 08:43] LABS: CARBON DIOXIDE 28 mEq/L (21-32)
[2017-05-06] MEDS ORDERED: SODIUM BICARBONATE 8.4% 1 MEQ/ML 50ML SYR IV ONE (08:45)
[2017-05-06] MEDS ORDERED: DEXTROSE 50% WATER 50ML SYRINGE IV ONE ×3 (08:45→12:00)
[2017-05-06] MEDS ORDERED: INSULIN REGULAR (HUMULIN R) 300UNITS/3ML IV ONE (08:45)
[2017-05-06 08:52] LABS: PLATELET ESTIMATE NORMAL
[2017-05-06 09:19] LABS: CLARITY URINE TURBID (CLEAR); COLOR URINE YELLOW (YELLOW); GLUCOSE URINE NEGATIVE (NEGATIVE); KETONES URINE NEGATIVE (NEGATIVE); LEUKOCYTE ESTERASE URINE 3+ (NEGATIVE); NITRITE URINE NEGATIVE (NEGATIVE); OCCULT BLOOD URINE 2+ (NEGATIVE); PROTEIN URINE 2+ (NEGATIVE); UROBILINOGEN URINE 0.2 E.U./dL (0.2-1.0)
[2017-05-06] MEDS ORDERED: ALBUTEROL (0.5%) 2.5MG/0.5ML NEB HHN ONE (09:56)
[2017-05-06] MEDS ORDERED: CEFTRIAXONE 1 G PREMIX 50 ML IV ONE (10:45)
[2017-05-06] MEDS ORDERED: SODIUM CHLORIDE 0.9% 500 ML IV ONE (11:50)
[2017-05-06 12:50] VITALS: BP 120/83
[2017-05-06 12:58] VITALS: BP 120/83
[2017-05-06 16:16] VITALS: BP 151/64
[2017-05-06] MEDS ORDERED: IPRATROPIUM BROMIDE (0.02%) 0.5MG/2.5ML NEB HHN PRN (17:15)
[2017-05-06] MEDS: PIPERACILLIN/TAZ 2.25G PREMIX 50 ML IV SCH (18:30)
[2017-05-06 20:00] VITALS: BP 158/62
[2017-05-06] MEDS: IPRATROPIUM BROMIDE (0.02%) 0.5MG/2.5ML NEB HHN SCH (21:09)
[2017-05-06] MEDS: ATORVASTATIN CALCIUM 10MG TABLET PO SCH (22:44)
[2017-05-06] MEDS: CARVEDILOL 25MG TABLET PO SCH (22:45)
[2017-05-07] VITALS: BP 149/66
[2017-05-07] MEDS: IPRATROPIUM BROMIDE (0.02%) 0.5MG/2.5ML NEB HHN SCH ×6 (00:29→20:32)
[2017-05-07] MEDS: PIPERACILLIN/TAZ 2.25G PREMIX 50 ML IV SCH ×3 (03:15→17:10)
[2017-05-07 04:00] VITALS: BP 130/76
[2017-05-07 05:33] LABS: HEMATOCRIT 31.9 % (42.0-52.0); HEMOGLOBIN 10.8 g/dL (14.0-18.0); MEAN CORPUSCULAR HEMOGLOBIN 30.5 pg (28.0-32.0); PLATELET 154 x1000/uL (130-400); RED BLOOD CELL COUNT 3.54 mill/uL (4.7-6.1); RED CELL DISTRIBUTION WIDTH 18.1 % (11.6-14.6)
[2017-05-07 06:33] LABS: PHOSPHORUS 4.5 mg/dL (2.5-4.9); T4 FREE 0.96 ng/dL (0.76-1.46)
[2017-05-07 08:00] VITALS: BP 141/69
[2017-05-07] MEDS ORDERED: MEDICATION NOT ON FORMULARY EA (Omeprazole 1 CAP) PO SCH (09:00)
[2017-05-07] MEDS ORDERED: CARVEDILOL 25MG TABLET PO SCH (09:00)
[2017-05-07] MEDS ORDERED: MEDICATION NOT ON FORMULARY EA (Brinzolamide (Azopt) 1 DROP) EACHEYE SCH (09:00)
[2017-05-07] MEDS ORDERED: DUTASTERIDE 0.5MG CAPSULE PO SCH (09:00)
[2017-05-07] MEDS ORDERED: AZOPT EACHEYE SCH (09:00)
[2017-05-07] MEDS ORDERED: MEDICATION NOT ON FORMULARY EA (Rosuvastatin Calcium (Crestor) 1 TAB) PO SCH (09:00)
[2017-05-07] MEDS ORDERED: CLOPIDOGREL 75MG TABLET PO SCH (09:00)
[2017-05-07] MEDS: ASPIRIN 81MG EC TABLET PO SCH (09:11)
[2017-05-07] MEDS: DORZOLAMIDE 2% OPHTH 10 ML BOTTLE EACHEYE SCH (09:11)
[2017-05-07] MEDS: OMEPRAZOLE 20MG CAPSULE EXTENDED RELEASE PO SCH (09:11)
[2017-05-07] MEDS: CLOPIDOGREL 75MG TABLET PO SCH (09:11)
[2017-05-07] MEDS: CARVEDILOL 25MG TABLET PO SCH ×2 (09:12→21:27)
[2017-05-07] MEDS: DUTASTERIDE 0.5MG CAPSULE PO SCH (09:16)
[2017-05-07 09:47] LABS: BG BASE EXCESS 0.8 mmol/L (-2.0-2.0); BG CARBOXYHEMOGLOBIN 0.4 % (0.5-1.5); BG FRACTION INSPIRED OXYGEN 28; BG HCO3 ACT 25.1 mmol/L (22.0-26.0); BG METHEMOGLOBIN 0.3 % (0.0-1.5); BG OXYHEMOGLOBIN 94.3 % (94.0-97.0); BG PCO2 38.8 mmHg (35.0-45.0); BG PH 7.428 (7.350-7.450); BG SAMPLE SITE RIGHT RADIAL; BG TOTAL HEMOGLOBIN 11.7 g/dL (12.0-18.0); BG VENT MODE NASAL CANNULA
[2017-05-07 10:28] LABS: CARCINO EMBRYONIC ANTIGEN 3.9 ng/ml; TRIOIODOTHYRONINE TOTAL 0.37 ng/ml (0.60-1.81)
[2017-05-07 10:31] LABS: PROSTRATE SPECIFIC AG TOTAL 0.02 ng/mL (0.0-4.0)
[2017-05-07 12:00] VITALS: BP 118/66
[2017-05-07 15:55] VITALS: BP 123/63
[2017-05-07] MEDS: AZITHROMYCIN 250 MG TABLET PO SCH (17:09)
[2017-05-07] MEDS: CALCIUM CARBONATE 1250MG TABLET (500MG ELEMENTAL CALCIUM) PO SCH (17:09)
[2017-05-07 20:00] VITALS: BP 125/76
[2017-05-07] MEDS: ATORVASTATIN CALCIUM 10MG TABLET PO SCH (21:28)
[2017-05-08] VITALS: BP 140/63
[2017-05-08] MEDS: IPRATROPIUM BROMIDE (0.02%) 0.5MG/2.5ML NEB HHN SCH ×6 (00:19→20:16)
[2017-05-08] MEDS: PIPERACILLIN/TAZ 2.25G PREMIX 50 ML IV SCH ×3 (01:29→19:03)
[2017-05-08 04:00] VITALS: BP 143/69
[2017-05-08 05:56] LABS: HEMATOCRIT. 33.3 % (42.0-52.0); HEMOGLOBIN. 11.3 g/dL (14.0-18.0); MEAN CORPUSCULAR HEMOGLOBIN 30.8 pg (28.0-32.0); MEAN CORPUSCULAR VOLUME 90.6 fL (80.0-94.0); MEAN PLATELET VOLUME 7.6 fl (7.4-10.4); PLATELET 138 x1000/uL (130-400); RED BLOOD CELL COUNT 3.68 mill/uL (4.7-6.1); RED CELL DISTRIBUTION WIDTH 18.1 % (11.6-14.6)
[2017-05-08 08:00] VITALS: BP 154/79
[2017-05-08] MEDS: DORZOLAMIDE 2% OPHTH 10 ML BOTTLE EACHEYE SCH (09:41)
[2017-05-08] MEDS: CALCIUM CARBONATE 1250MG TABLET (500MG ELEMENTAL CALCIUM) PO SCH ×2 (09:42→19:03)
[2017-05-08] MEDS: CARVEDILOL 25MG TABLET PO SCH ×2 (09:42→21:47)
[2017-05-08] MEDS: OMEPRAZOLE 20MG CAPSULE EXTENDED RELEASE PO SCH (09:42)
[2017-05-08] MEDS: ASPIRIN 81MG EC TABLET PO SCH (09:42)
[2017-05-08] MEDS: CLOPIDOGREL 75MG TABLET PO SCH (09:42)
[2017-05-08] MEDS: AZITHROMYCIN 250 MG TABLET PO SCH (09:42)
[2017-05-08] MEDS: DUTASTERIDE 0.5MG CAPSULE PO SCH (09:42)
[2017-05-08 10:50] LABS: PLATELET ESTIMATE NORMAL
[2017-05-08 12:00] VITALS: BP 120/64
[2017-05-08 16:00] VITALS: BP 148/78
[2017-05-08 20:00] VITALS: BP 155/80
[2017-05-08] MEDS: ATORVASTATIN CALCIUM 10MG TABLET PO SCH (21:44)
[2017-05-08] MEDS: ACETAMINOPHEN 325MG TABLET PO PRN (21:44)
[2017-05-08] MEDS ORDERED: LEVOFLOXACIN 500MG PREMIX 100 ML IV NR (22:00)
[2017-05-09] VITALS (7 sets, daily range): BP systolic 99–161; BP diastolic 58–100
[2017-05-09] MEDS: IPRATROPIUM BROMIDE (0.02%) 0.5MG/2.5ML NEB HHN SCH ×6 (00:09→20:12)
[2017-05-09] MEDS: PIPERACILLIN/TAZ 2.25G PREMIX 50 ML IV SCH ×2 (01:45→09:08)
[2017-05-09 06:12] LABS: HEMATOCRIT. 37.1 % (42.0-52.0); HEMOGLOBIN. 12.5 g/dL (14.0-18.0); MEAN CORPUSCULAR HEMOGLOBIN 30.6 pg (28.0-32.0); MEAN CORPUSCULAR VOLUME 90.7 fL (80.0-94.0); MEAN PLATELET VOLUME 7.9 fl (7.4-10.4); PLATELET 114 x1000/uL (130-400); RED BLOOD CELL COUNT 4.09 mill/uL (4.7-6.1); RED CELL DISTRIBUTION WIDTH 17.7 % (11.6-14.6)
[2017-05-09] MEDS: OMEPRAZOLE 20MG CAPSULE EXTENDED RELEASE PO SCH (07:40)
[2017-05-09] MEDS: ASPIRIN 81MG EC TABLET PO SCH (09:00)
[2017-05-09] MEDS: CLOPIDOGREL 75MG TABLET PO SCH (09:00)
[2017-05-09] MEDS: CALCIUM CARBONATE 1250MG TABLET (500MG ELEMENTAL CALCIUM) PO SCH ×2 (09:00→18:28)
[2017-05-09] MEDS: DUTASTERIDE 0.5MG CAPSULE PO SCH (09:00)
[2017-05-09] MEDS: CARVEDILOL 25MG TABLET PO SCH ×2 (09:00→20:27)
[2017-05-09] MEDS: DORZOLAMIDE 2% OPHTH 10 ML BOTTLE EACHEYE SCH (11:34)
[2017-05-09 14:16] LABS: PLATELET ESTIMATE SLIGHTLY DECREASED
[2017-05-09] MEDS ORDERED: HEPARIN SODIUM 1,000 UNIT/1ML VIAL IV SCH (14:30)
[2017-05-09] MEDS: CEFAZOLIN 1000MG PREMIX 50 ML IV SCH (18:28)
[2017-05-09] MEDS: ATORVASTATIN CALCIUM 10MG TABLET PO SCH (20:26)
[2017-05-10] VITALS: BP 126/63
[2017-05-10 04:00] VITALS: BP 124/76
[2017-05-10] MEDS: IPRATROPIUM BROMIDE (0.02%) 0.5MG/2.5ML NEB HHN SCH ×2 (04:00→08:05)
[2017-05-10 06:25] LABS: HEMATOCRIT. 35.9 % (42.0-52.0); MEAN CORPUSCULAR HEMOGLOBIN 30.3 pg (28.0-32.0); MEAN CORPUSCULAR VOLUME 90.1 fL (80.0-94.0); MEAN PLATELET VOLUME 8.1 fl (7.4-10.4); PLATELET 103 x1000/uL (130-400); RED BLOOD CELL COUNT 3.98 mill/uL (4.7-6.1); RED CELL DISTRIBUTION WIDTH 18.1 % (11.6-14.6)
[2017-05-10 08:00] VITALS: BP 119/63
[2017-05-10] MEDS: CARVEDILOL 25MG TABLET PO SCH ×2 (08:44→20:48)
[2017-05-10] MEDS: CLOPIDOGREL 75MG TABLET PO SCH (08:44)
[2017-05-10] MEDS: CALCIUM CARBONATE 1250MG TABLET (500MG ELEMENTAL CALCIUM) PO SCH ×2 (08:44→17:27)
[2017-05-10] MEDS: CEFAZOLIN 1000MG PREMIX 50 ML IV SCH (08:44)
[2017-05-10] MEDS: DUTASTERIDE 0.5MG CAPSULE PO SCH (08:44)
[2017-05-10] MEDS: FAMOTIDINE 20MG TABLET PO SCH (08:44)
[2017-05-10] MEDS: ASPIRIN 81MG EC TABLET PO SCH (08:44)
[2017-05-10] MEDS: DORZOLAMIDE 2% OPHTH 10 ML BOTTLE EACHEYE SCH (08:44)
[2017-05-10] MEDS ORDERED: ONDANSETRON HCL 4MG/2ML VIAL IV PRN (11:15)
[2017-05-10 12:00] VITALS: BP 123/67
[2017-05-10 12:51] LABS: CLARITY URINE CLOUDY (CLEAR); COLOR URINE YELLOW (YELLOW); GLUCOSE URINE NEGATIVE (NEGATIVE); KETONES URINE NEGATIVE (NEGATIVE); LEUKOCYTE ESTERASE URINE 3+ (NEGATIVE); NITRITE URINE NEGATIVE (NEGATIVE); OCCULT BLOOD URINE 2+ (NEGATIVE); PH URINE 8.5 (4.5-8.0); PROTEIN URINE 2+ (NEGATIVE); SPECIFIC GRAVITY URINE 1.011 (1.005-1.030); UROBILINOGEN URINE 0.2 E.U./dL (0.2-1.0)
[2017-05-10 16:00] VITALS: BP 122/72
[2017-05-10 20:00] VITALS: BP 108/46
[2017-05-10] MEDS: ATORVASTATIN CALCIUM 10MG TABLET PO SCH (20:57)
[2017-05-10 21:06] LABS: PLATELET ESTIMATE DECREASED
[2017-05-10] MEDS ORDERED: PIPERACILLIN/TAZ 3.375G PREMIX 50 ML IV ONE (21:45)
[2017-05-10] MEDS ORDERED: LEVOFLOXACIN 250MG PREMIX 50 ML IV SCH (22:00)
[2017-05-11] VITALS: BP 105/71
[2017-05-11] MEDS ORDERED: PIPERACILLIN/TAZ 2.25G PREMIX 50 ML IV NR
[2017-05-11] MEDS: ACETAMINOPHEN 325MG TABLET PO PRN (04:48)
[2017-05-11 06:31] LABS: HEMATOCRIT. 31.3 % (42.0-52.0); HEMOGLOBIN. 10.7 g/dL (14.0-18.0); MEAN CORPUSCULAR HEMOGLOBIN 30.6 pg (28.0-32.0); MEAN CORPUSCULAR VOLUME 89.2 fL (80.0-94.0); MEAN PLATELET VOLUME 8.7 fl (7.4-10.4); PLATELET 103 x1000/uL (130-400); RED BLOOD CELL COUNT 3.51 mill/uL (4.7-6.1)
[2017-05-11 08:00] VITALS: BP 91/39
[2017-05-11 08:16] LABS: PLATELET ESTIMATE DECREASED
[2017-05-11] MEDS: CALCIUM CARBONATE 1250MG TABLET (500MG ELEMENTAL CALCIUM) PO SCH ×2 (08:51→16:19)
[2017-05-11] MEDS: CLOPIDOGREL 75MG TABLET PO SCH (08:51)
[2017-05-11] MEDS: ASPIRIN 81MG EC TABLET PO SCH (08:51)
[2017-05-11] MEDS: DUTASTERIDE 0.5MG CAPSULE PO SCH (08:51)
[2017-05-11] MEDS: CARVEDILOL 25MG TABLET PO SCH ×2 (08:52→20:07)
[2017-05-11] MEDS: FAMOTIDINE 20MG TABLET PO SCH (08:52)
[2017-05-11] MEDS: DORZOLAMIDE 2% OPHTH 10 ML BOTTLE EACHEYE SCH (08:53)
[2017-05-11] MEDS: CEFAZOLIN 500MG in DEXTROSE 5% WATER 50ML IV SCH (08:59)
[2017-05-11] MEDS ORDERED: SODIUM CHLORIDE 0.9% 500ML IV NR (09:15)
[2017-05-11] MEDS ORDERED: SODIUM CHLORIDE 0.9% 1000ML BAG (SEPSIS BOLUS) IV ONE (09:15)
[2017-05-11] MEDS ORDERED: ZOSYN XX SCH (10:45)
[2017-05-11] MEDS: PIPERACILLIN/TAZ 2.25G PREMIX 50 ML IV SCH ×2 (11:17→17:07)
[2017-05-11] MEDS: DEXT 5%/0.9% NACL 1,000 ML IV SCH (11:55)
[2017-05-11 12:00] VITALS: BP 106/63
[2017-05-11 13:08] LABS: 25-HYDROXY VITAMIN D3 36 ng/mL (.)
[2017-05-11] MEDS: FOLIC ACID/VITAMIN B COMP W-C TABLET PO SCH (13:56)
[2017-05-11] MEDS: ZINC SULFATE 220 MG ( 50 ) CAPSULE PO SCH (13:57)
[2017-05-11 16:00] VITALS: BP 110/45
[2017-05-11 20:00] VITALS: BP 104/41
[2017-05-11] MEDS: ATORVASTATIN CALCIUM 10MG TABLET PO SCH (20:07)
[2017-05-11] MEDS: ASCORBIC ACID 250 MG TABLET PO SCH (20:07)
[2017-05-12] VITALS: BP 120/49
[2017-05-12] MEDS: PIPERACILLIN/TAZ 2.25G PREMIX 50 ML IV SCH ×3 (01:35→17:49)
[2017-05-12 04:00] VITALS: BP 116/72
[2017-05-12 07:14] LABS: BASOPHILS % 0.1 % (0.0-2.0); EOSINOPHILS % 0.2 % (0.0-5.0); HEMATOCRIT. 30.9 % (42.0-52.0); HEMOGLOBIN. 10.4 g/dL (14.0-18.0); MEAN CORPUSCULAR HEMOGLOBIN 30.2 pg (28.0-32.0); MEAN CORPUSCULAR VOLUME 89.6 fL (80.0-94.0); MEAN PLATELET VOLUME 8.8 fl (7.4-10.4); MONOCYTES % 8.4 % (2.0-8.0); NEUTROPHILS % 83.3 % (40.0-76.0); PLATELET 112 x1000/uL (130-400); RED BLOOD CELL COUNT 3.45 mill/uL (4.7-6.1); RED CELL DISTRIBUTION WIDTH 17.5 % (11.6-14.6)
[2017-05-12 08:00] VITALS: BP 118/70
[2017-05-12] MEDS: CARVEDILOL 25MG TABLET PO SCH ×2 (09:00→21:24)
[2017-05-12] MEDS: CLOPIDOGREL 75MG TABLET PO SCH (09:58)
[2017-05-12] MEDS: FAMOTIDINE 20MG TABLET PO SCH (09:58)
[2017-05-12] MEDS: FOLIC ACID/VITAMIN B COMP W-C TABLET PO SCH (09:58)
[2017-05-12] MEDS: ASPIRIN 81MG EC TABLET PO SCH (09:58)
[2017-05-12] MEDS: CALCIUM CARBONATE 1250MG TABLET (500MG ELEMENTAL CALCIUM) PO SCH ×2 (09:58→17:50)
[2017-05-12] MEDS: ASCORBIC ACID 250 MG TABLET PO SCH ×2 (09:58→21:23)
[2017-05-12] MEDS: CEFAZOLIN 500MG in DEXTROSE 5% WATER 50ML IV SCH (09:58)
[2017-05-12] MEDS: DUTASTERIDE 0.5MG CAPSULE PO SCH (09:58)
[2017-05-12] MEDS: ZINC SULFATE 220 MG ( 50 ) CAPSULE PO SCH (09:58)
[2017-05-12] MEDS: DORZOLAMIDE 2% OPHTH 10 ML BOTTLE EACHEYE SCH (10:01)
[2017-05-12] MEDS: DEXT 5%/0.9% NACL 1,000 ML IV SCH (11:10)
[2017-05-12 12:00] VITALS: BP 114/77
[2017-05-12 16:00] VITALS: BP 119/81
[2017-05-12 20:00] VITALS: BP 135/56
[2017-05-12] MEDS: ACETAMINOPHEN 325MG TABLET PO PRN (21:23)
[2017-05-12] MEDS: ATORVASTATIN CALCIUM 10MG TABLET PO SCH (21:23)
[2017-05-13] VITALS: BP 118/63
[2017-05-13] MEDS: PIPERACILLIN/TAZ 2.25G PREMIX 50 ML IV SCH ×3 (02:09→18:45)
[2017-05-13 04:00] VITALS: BP 120/64
[2017-05-13] MEDS: DEXT 5%/0.9% NACL 1,000 ML IV SCH (04:01)
[2017-05-13 05:53] LABS: HEMATOCRIT. 29.4 % (42.0-52.0); HEMOGLOBIN. 9.9 g/dL (14.0-18.0); MEAN CORPUSCULAR VOLUME 89.4 fL (80.0-94.0); PLATELET 111 x1000/uL (130-400); RED BLOOD CELL COUNT 3.29 mill/uL (4.7-6.1); RED CELL DISTRIBUTION WIDTH 17.5 % (11.6-14.6)
[2017-05-13 08:00] VITALS: BP 135/55
[2017-05-13] MEDS: CARVEDILOL 25MG TABLET PO SCH ×2 (09:00→20:53)
[2017-05-13] MEDS: DUTASTERIDE 0.5MG CAPSULE PO SCH (10:09)
[2017-05-13] MEDS: DORZOLAMIDE 2% OPHTH 10 ML BOTTLE EACHEYE SCH (10:09)
[2017-05-13] MEDS: FOLIC ACID/VITAMIN B COMP W-C TABLET PO SCH (10:09)
[2017-05-13] MEDS: ZINC SULFATE 220 MG ( 50 ) CAPSULE PO SCH (10:09)
[2017-05-13] MEDS: ASPIRIN 81MG EC TABLET PO SCH (10:09)
[2017-05-13] MEDS: CALCIUM CARBONATE 1250MG TABLET (500MG ELEMENTAL CALCIUM) PO SCH ×2 (10:09→18:45)
[2017-05-13] MEDS: FAMOTIDINE 20MG TABLET PO SCH (10:10)
[2017-05-13] MEDS: CLOPIDOGREL 75MG TABLET PO SCH (10:10)
[2017-05-13 12:00] VITALS: BP 138/64
[2017-05-13 14:19] LABS: PLATELET ESTIMATE SLIGHTLY DECREASED
[2017-05-13] MEDS: ACETAMINOPHEN 325MG TABLET PO PRN (15:37)
[2017-05-13 16:00] VITALS: BP 135/84
[2017-05-13 20:00] VITALS: BP 139/50
[2017-05-13] MEDS: ATORVASTATIN CALCIUM 10MG TABLET PO SCH (20:53)
[2017-05-14] VITALS (7 sets, daily range): BP systolic 132–161; BP diastolic 64–88
[2017-05-14] MEDS: PIPERACILLIN/TAZ 2.25G PREMIX 50 ML IV SCH ×3 (01:11→18:30)
[2017-05-14 06:12] LABS: HEMATOCRIT. 30.2 % (42.0-52.0); HEMOGLOBIN. 10.2 g/dL (14.0-18.0); MEAN CORPUSCULAR HEMOGLOBIN 30.1 pg (28.0-32.0); MEAN PLATELET VOLUME 8.5 fl (7.4-10.4); PLATELET 147 x1000/uL (130-400); RED BLOOD CELL COUNT 3.39 mill/uL (4.7-6.1); RED CELL DISTRIBUTION WIDTH 17.5 % (11.6-14.6)
[2017-05-14] MEDS: ZINC SULFATE 220 MG ( 50 ) CAPSULE PO SCH (09:09)
[2017-05-14] MEDS: FOLIC ACID/VITAMIN B COMP W-C TABLET PO SCH (09:09)
[2017-05-14] MEDS: CLOPIDOGREL 75MG TABLET PO SCH (09:09)
[2017-05-14] MEDS: FAMOTIDINE 20MG TABLET PO SCH (09:09)
[2017-05-14] MEDS: DUTASTERIDE 0.5MG CAPSULE PO SCH (09:09)
[2017-05-14] MEDS: CALCIUM CARBONATE 1250MG TABLET (500MG ELEMENTAL CALCIUM) PO SCH ×2 (09:10→18:30)
[2017-05-14] MEDS: CARVEDILOL 25MG TABLET PO SCH ×2 (09:10→21:32)
[2017-05-14] MEDS: ASPIRIN 81MG EC TABLET PO SCH (09:10)
[2017-05-14] MEDS: ACETAMINOPHEN 325MG TABLET PO PRN ×2 (09:10→21:32)
[2017-05-14] MEDS: DORZOLAMIDE 2% OPHTH 10 ML BOTTLE EACHEYE SCH (09:11)
[2017-05-14] MEDS: ATORVASTATIN CALCIUM 10MG TABLET PO SCH (21:31)
[2017-05-15] VITALS: BP 147/57
[2017-05-15] MEDS: PIPERACILLIN/TAZ 2.25G PREMIX 50 ML IV SCH ×3 (01:47→18:24)
[2017-05-15 04:00] VITALS: BP 142/74
[2017-05-15 06:07] LABS: HEMATOCRIT. 28.9 % (42.0-52.0); HEMOGLOBIN. 9.7 g/dL (14.0-18.0); MEAN CORPUSCULAR HEMOGLOBIN 29.9 pg (28.0-32.0); MEAN CORPUSCULAR VOLUME 88.8 fL (80.0-94.0); MEAN PLATELET VOLUME 8.4 fl (7.4-10.4); PLATELET 173 x1000/uL (130-400); RED BLOOD CELL COUNT 3.26 mill/uL (4.7-6.1); RED CELL DISTRIBUTION WIDTH 17.7 % (11.6-14.6)
[2017-05-15 07:57] VITALS: BP 150/66
[2017-05-15 08:43] LABS: PLATELET ESTIMATE NORMAL
[2017-05-15] MEDS: FOLIC ACID/VITAMIN B COMP W-C TABLET PO SCH (10:00)
[2017-05-15] MEDS: DUTASTERIDE 0.5MG CAPSULE PO SCH (10:00)
[2017-05-15] MEDS: CLOPIDOGREL 75MG TABLET PO SCH (10:00)
[2017-05-15] MEDS: ASPIRIN 81MG EC TABLET PO SCH (10:00)
[2017-05-15] MEDS: ZINC SULFATE 220 MG ( 50 ) CAPSULE PO SCH (10:00)
[2017-05-15] MEDS: CARVEDILOL 25MG TABLET PO SCH ×2 (10:00→20:51)
[2017-05-15] MEDS: FAMOTIDINE 20MG TABLET PO SCH (10:00)
[2017-05-15] MEDS: DORZOLAMIDE 2% OPHTH 10 ML BOTTLE EACHEYE SCH (10:01)
[2017-05-15] MEDS: CALCIUM CARBONATE 1250MG TABLET (500MG ELEMENTAL CALCIUM) PO SCH ×2 (10:01→18:24)
[2017-05-15] MEDS ORDERED: POTASSIUM CHLORIDE 20MEQ/PACKET GT NR (10:30)
[2017-05-15 10:39] LABS: ATYPICAL LYMPHOCYTES 1; PLATELET ESTIMATE NORMAL
[2017-05-15 12:00] VITALS: BP 146/83
[2017-05-15 16:00] VITALS: BP 148/58
[2017-05-15 20:00] VITALS: BP 137/63
[2017-05-15] MEDS: ATORVASTATIN CALCIUM 10MG TABLET PO SCH (20:51)
[2017-05-16] VITALS: BP 135/84
[2017-05-16] MEDS: PIPERACILLIN/TAZ 2.25G PREMIX 50 ML IV SCH ×3 (02:16→17:36)
[2017-05-16 04:00] VITALS: BP 128/60
[2017-05-16 05:25] LABS: HEMOGLOBIN. 10.1 g/dL (14.0-18.0); MEAN CORPUSCULAR VOLUME 88.7 fL (80.0-94.0); MEAN PLATELET VOLUME 8.7 fl (7.4-10.4); PLATELET 170 x1000/uL (130-400); RED BLOOD CELL COUNT 3.38 mill/uL (4.7-6.1); RED CELL DISTRIBUTION WIDTH 17.9 % (11.6-14.6)
[2017-05-16 08:00] VITALS: BP 155/84
[2017-05-16] MEDS: CLOPIDOGREL 75MG TABLET PO SCH (09:16)
[2017-05-16] MEDS: DUTASTERIDE 0.5MG CAPSULE PO SCH (09:16)
[2017-05-16] MEDS: FAMOTIDINE 20MG TABLET PO SCH (09:16)
[2017-05-16] MEDS: ZINC SULFATE 220 MG ( 50 ) CAPSULE PO SCH (09:16)
[2017-05-16] MEDS: ASPIRIN 81MG EC TABLET PO SCH (09:16)
[2017-05-16] MEDS: FOLIC ACID/VITAMIN B COMP W-C TABLET PO SCH (09:16)
[2017-05-16] MEDS: CARVEDILOL 25MG TABLET PO SCH ×2 (09:16→20:40)
[2017-05-16] MEDS: CALCIUM CARBONATE 1250MG TABLET (500MG ELEMENTAL CALCIUM) PO SCH ×2 (09:16→16:05)
[2017-05-16] MEDS: DORZOLAMIDE 2% OPHTH 10 ML BOTTLE EACHEYE SCH (09:17)
[2017-05-16 12:00] VITALS: BP 133/97
[2017-05-16 12:54] LABS: NUCLEATED RED BLOOD CELLS 2 /100 WBC; PLATELET ESTIMATE NORMAL
[2017-05-16 16:00] VITALS: BP 150/92
[2017-05-16 20:00] VITALS: BP 146/69
[2017-05-16] MEDS: ATORVASTATIN CALCIUM 10MG TABLET PO SCH (20:40)
[2017-05-16] MEDS ORDERED: EPOETIN ALFA 4000UNITS/ML VIAL SUBCUT SCH (21:00)
[2017-05-17] VITALS: BP 161/79
[2017-05-17] MEDS: PIPERACILLIN/TAZ 2.25G PREMIX 50 ML IV SCH ×3 (01:43→17:22)
[2017-05-17 04:00] VITALS: BP 163/87
[2017-05-17 06:55] LABS: BASOPHILS % 0.2 % (0.0-2.0); HEMATOCRIT. 30.7 % (42.0-52.0); HEMOGLOBIN. 10.2 g/dL (14.0-18.0); MEAN CORPUSCULAR VOLUME 90.1 fL (80.0-94.0); MEAN PLATELET VOLUME 8.8 fl (7.4-10.4); NEUTROPHILS % 71.8 % (40.0-76.0); PLATELET 207 x1000/uL (130-400); RED BLOOD CELL COUNT 3.41 mill/uL (4.7-6.1); RED CELL DISTRIBUTION WIDTH 18.2 % (11.6-14.6)
[2017-05-17 08:00] VITALS: BP 158/75
[2017-05-17] MEDS: CLOPIDOGREL 75MG TABLET PO SCH (08:50)
[2017-05-17] MEDS: FOLIC ACID/VITAMIN B COMP W-C TABLET PO SCH (08:50)
[2017-05-17] MEDS: ZINC SULFATE 220 MG ( 50 ) CAPSULE PO SCH (08:50)
[2017-05-17] MEDS: FAMOTIDINE 20MG TABLET PO SCH (08:50)
[2017-05-17] MEDS: ASPIRIN 81MG EC TABLET PO SCH (08:50)
[2017-05-17] MEDS: CALCIUM CARBONATE 1250MG TABLET (500MG ELEMENTAL CALCIUM) PO SCH ×2 (08:50→16:47)
[2017-05-17] MEDS: DUTASTERIDE 0.5MG CAPSULE PO SCH (08:50)
[2017-05-17] MEDS: CARVEDILOL 25MG TABLET PO SCH ×2 (08:51→20:53)
[2017-05-17] MEDS: DORZOLAMIDE 2% OPHTH 10 ML BOTTLE EACHEYE SCH (08:52)
[2017-05-17 12:00] VITALS: BP 136/78
[2017-05-17 16:00] VITALS: BP 122/78
[2017-05-17 20:00] VITALS: BP 146/81
[2017-05-17] MEDS: ATORVASTATIN CALCIUM 10MG TABLET PO SCH (20:54)
[2017-05-18] VITALS: BP 142/79
[2017-05-18] MEDS: PIPERACILLIN/TAZ 2.25G PREMIX 50 ML IV SCH ×3 (01:58→18:00)
[2017-05-18 04:00] VITALS: BP 155/68
[2017-05-18 06:42] LABS: BASOPHILS % 0.3 % (0.0-2.0); EOSINOPHILS % 2.3 % (0.0-5.0); HEMATOCRIT. 31.1 % (42.0-52.0); HEMOGLOBIN. 10.4 g/dL (14.0-18.0); LYMPHOCYTES % 13.3 % (20.0-50.0); MEAN CORPUSCULAR VOLUME 89.6 fL (80.0-94.0); MEAN PLATELET VOLUME 9.1 fl (7.4-10.4); NEUTROPHILS % 73.1 % (40.0-76.0); PLATELET 219 x1000/uL (130-400); RED BLOOD CELL COUNT 3.47 mill/uL (4.7-6.1); RED CELL DISTRIBUTION WIDTH 18.2 % (11.6-14.6)
[2017-05-18 08:00] VITALS: BP 137/62
[2017-05-18] MEDS: DORZOLAMIDE 2% OPHTH 10 ML BOTTLE EACHEYE SCH (09:00)
[2017-05-18] MEDS: FAMOTIDINE 20MG TABLET PO SCH (11:52)
[2017-05-18] MEDS: CLOPIDOGREL 75MG TABLET PO SCH (11:52)
[2017-05-18] MEDS: ZINC SULFATE 220 MG ( 50 ) CAPSULE PO SCH (11:52)
[2017-05-18] MEDS: FOLIC ACID/VITAMIN B COMP W-C TABLET PO SCH (11:52)
[2017-05-18] MEDS: CARVEDILOL 25MG TABLET PO SCH ×2 (11:52→20:42)
[2017-05-18] MEDS: DUTASTERIDE 0.5MG CAPSULE PO SCH (11:56)
[2017-05-18] MEDS: ASPIRIN 81MG EC TABLET PO SCH (11:56)
[2017-05-18] MEDS: CALCIUM CARBONATE 1250MG TABLET (500MG ELEMENTAL CALCIUM) PO SCH ×2 (11:56→18:00)
[2017-05-18 12:00] VITALS: BP 120/78
[2017-05-18 16:00] VITALS: BP 118/69
[2017-05-18 20:00] VITALS: BP 125/59
[2017-05-18] MEDS: ATORVASTATIN CALCIUM 10MG TABLET PO SCH (20:42)
[2017-05-19] VITALS: BP 139/66
[2017-05-19] MEDS: PIPERACILLIN/TAZ 2.25G PREMIX 50 ML IV SCH ×3 (02:25→17:06)
[2017-05-19 04:00] VITALS: BP 149/75
[2017-05-19 05:49] LABS: BASOPHILS % 0.2 % (0.0-2.0); EOSINOPHILS % 1.7 % (0.0-5.0); HEMOGLOBIN. 10.8 g/dL (14.0-18.0); LYMPHOCYTES % 13.7 % (20.0-50.0); MEAN CORPUSCULAR HEMOGLOBIN 29.7 pg (28.0-32.0); MEAN CORPUSCULAR VOLUME 90.8 fL (80.0-94.0); MONOCYTES % 11.2 % (2.0-8.0); NEUTROPHILS % 73.2 % (40.0-76.0); PLATELET 225 x1000/uL (130-400); RED BLOOD CELL COUNT 3.64 mill/uL (4.7-6.1)
[2017-05-19 08:00] VITALS: BP 140/89
[2017-05-19] MEDS: CARVEDILOL 25MG TABLET PO SCH ×2 (08:47→21:29)
[2017-05-19] MEDS: ASPIRIN 81MG EC TABLET PO SCH (08:47)
[2017-05-19] MEDS: CLOPIDOGREL 75MG TABLET PO SCH (08:47)
[2017-05-19] MEDS: CALCIUM CARBONATE 1250MG TABLET (500MG ELEMENTAL CALCIUM) PO SCH ×2 (08:47→16:23)
[2017-05-19] MEDS: DORZOLAMIDE 2% OPHTH 10 ML BOTTLE EACHEYE SCH (08:47)
[2017-05-19] MEDS: FOLIC ACID/VITAMIN B COMP W-C TABLET PO SCH (08:47)
[2017-05-19] MEDS: DUTASTERIDE 0.5MG CAPSULE PO SCH (08:47)
[2017-05-19] MEDS: FAMOTIDINE 20MG TABLET PO SCH (08:47)
[2017-05-19] MEDS: ZINC SULFATE 220 MG ( 50 ) CAPSULE PO SCH (08:50)
[2017-05-19 12:00] VITALS: BP 136/88
[2017-05-19] MEDS ORDERED: ZOSYN XX SCH (14:15)
[2017-05-19 16:00] VITALS: BP 131/63
[2017-05-19 20:00] VITALS: BP 122/83
[2017-05-19] MEDS: ATORVASTATIN CALCIUM 10MG TABLET PO SCH (21:28)
[2017-05-20] VITALS: BP 125/79
[2017-05-20] MEDS: PIPERACILLIN/TAZ 2.25G PREMIX 50 ML IV SCH ×3 (02:08→18:39)
[2017-05-20 04:00] VITALS: BP 130/90
[2017-05-20 07:55] LABS: BASOPHILS % 0.4 % (0.0-2.0); EOSINOPHILS % 1.4 % (0.0-5.0); HEMATOCRIT. 29.6 % (42.0-52.0); LYMPHOCYTES % 11.7 % (20.0-50.0); MEAN CORPUSCULAR HEMOGLOBIN 30.3 pg (28.0-32.0); MEAN CORPUSCULAR VOLUME 90.1 fL (80.0-94.0); MEAN PLATELET VOLUME 9.2 fl (7.4-10.4); MONOCYTES % 9.4 % (2.0-8.0); NEUTROPHILS % 77.1 % (40.0-76.0); PLATELET 251 x1000/uL (130-400); RED BLOOD CELL COUNT 3.28 mill/uL (4.7-6.1); RED CELL DISTRIBUTION WIDTH 17.8 % (11.6-14.6)
[2017-05-20 08:00] VITALS: BP 147/73
[2017-05-20] MEDS: DUTASTERIDE 0.5MG CAPSULE PO SCH (08:16)
[2017-05-20] MEDS: CALCIUM CARBONATE 1250MG TABLET (500MG ELEMENTAL CALCIUM) PO SCH ×2 (08:16→18:39)
[2017-05-20] MEDS: DORZOLAMIDE 2% OPHTH 10 ML BOTTLE EACHEYE SCH (08:16)
[2017-05-20] MEDS: ZINC SULFATE 220 MG ( 50 ) CAPSULE PO SCH (08:17)
[2017-05-20] MEDS: FAMOTIDINE 20MG TABLET PO SCH (08:17)
[2017-05-20] MEDS: ASPIRIN 81MG EC TABLET PO SCH (08:17)
[2017-05-20] MEDS: FOLIC ACID/VITAMIN B COMP W-C TABLET PO SCH (08:17)
[2017-05-20] MEDS: CARVEDILOL 25MG TABLET PO SCH ×2 (09:00→21:50)
[2017-05-20] MEDS ORDERED: SODIUM CHLORIDE 10% FOR INH 15ML VIAL NEB INH SCH (09:30)
[2017-05-20] MEDS: CLOPIDOGREL 75MG TABLET PO SCH (09:33)
[2017-05-20 12:00] VITALS: BP 113/65
[2017-05-20 16:00] VITALS: BP 133/87
[2017-05-20 20:00] VITALS: BP 132/67
[2017-05-20] MEDS: ATORVASTATIN CALCIUM 10MG TABLET PO SCH (21:50)
[2017-05-21] VITALS: BP 125/69
[2017-05-21] MEDS: PIPERACILLIN/TAZ 2.25G PREMIX 50 ML IV SCH ×3 (03:45→17:14)
[2017-05-21 04:00] VITALS: BP 108/58
[2017-05-21 08:00] VITALS: BP 126/70
[2017-05-21] MEDS: FOLIC ACID/VITAMIN B COMP W-C TABLET PO SCH (09:21)
[2017-05-21] MEDS: CLOPIDOGREL 75MG TABLET PO SCH (09:21)
[2017-05-21] MEDS: DORZOLAMIDE 2% OPHTH 10 ML BOTTLE EACHEYE SCH (09:21)
[2017-05-21] MEDS: CALCIUM CARBONATE 1250MG TABLET (500MG ELEMENTAL CALCIUM) PO SCH ×2 (09:21→17:14)
[2017-05-21] MEDS: CARVEDILOL 25MG TABLET PO SCH ×2 (09:21→21:12)
[2017-05-21] MEDS: DUTASTERIDE 0.5MG CAPSULE PO SCH (09:21)
[2017-05-21] MEDS: ASPIRIN 81MG EC TABLET PO SCH (09:21)
[2017-05-21] MEDS: FAMOTIDINE 20MG TABLET PO SCH (09:21)
[2017-05-21] MEDS: ZINC SULFATE 220 MG ( 50 ) CAPSULE PO SCH (09:21)
[2017-05-21 12:00] VITALS: BP 111/62
[2017-05-21] MEDS ORDERED: NYSTATIN POWDER 15GM TOP SCH (15:15)
[2017-05-21 16:00] VITALS: BP 124/68
[2017-05-21 20:00] VITALS: BP 124/87
[2017-05-21] MEDS: ATORVASTATIN CALCIUM 10MG TABLET PO SCH (21:11)
[2017-05-22] VITALS: BP 126/85
[2017-05-22] MEDS: PIPERACILLIN/TAZ 2.25G PREMIX 50 ML IV SCH ×3 (02:21→17:29)
[2017-05-22] MEDS: NYSTATIN POWDER 15GM TOP PRN (03:35)
[2017-05-22 04:00] VITALS: BP 105/61
[2017-05-22 06:27] LABS: BASOPHILS % 0.3 % (0.0-2.0); EOSINOPHILS % 1.3 % (0.0-5.0); HEMATOCRIT. 29.2 % (42.0-52.0); HEMOGLOBIN. 9.8 g/dL (14.0-18.0); LYMPHOCYTES % 14.6 % (20.0-50.0); MEAN CORPUSCULAR HEMOGLOBIN 29.8 pg (28.0-32.0); MEAN CORPUSCULAR VOLUME 89.3 fL (80.0-94.0); MEAN PLATELET VOLUME 9.5 fl (7.4-10.4); MONOCYTES % 9.3 % (2.0-8.0); NEUTROPHILS % 74.5 % (40.0-76.0); PLATELET 301 x1000/uL (130-400); RED BLOOD CELL COUNT 3.27 mill/uL (4.7-6.1); RED CELL DISTRIBUTION WIDTH 17.8 % (11.6-14.6)
[2017-05-22 08:00] VITALS: BP 112/63
[2017-05-22] MEDS: ASPIRIN 81MG EC TABLET PO SCH (08:30)
[2017-05-22] MEDS: FOLIC ACID/VITAMIN B COMP W-C TABLET PO SCH (08:30)
[2017-05-22] MEDS: CLOPIDOGREL 75MG TABLET PO SCH (08:31)
[2017-05-22] MEDS: ZINC SULFATE 220 MG ( 50 ) CAPSULE PO SCH (08:31)
[2017-05-22] MEDS: CARVEDILOL 25MG TABLET PO SCH ×2 (08:31→20:52)
[2017-05-22] MEDS: FAMOTIDINE 20MG TABLET PO SCH (08:31)
[2017-05-22] MEDS: DORZOLAMIDE 2% OPHTH 10 ML BOTTLE EACHEYE SCH (08:32)
[2017-05-22] MEDS: DUTASTERIDE 0.5MG CAPSULE PO SCH (08:34)
[2017-05-22] MEDS: CALCIUM CARBONATE 1250MG TABLET (500MG ELEMENTAL CALCIUM) PO SCH ×2 (08:38→17:05)
[2017-05-22] MEDS: NYSTATIN POWDER 15GM TOP SCH ×3 (08:39→17:05)
[2017-05-22 12:00] VITALS: BP 118/61
[2017-05-22] MEDS: ACETAMINOPHEN 325MG TABLET PO PRN (14:33)
[2017-05-22 16:00] VITALS: BP 108/71
[2017-05-22 19:44] VITALS: BP 117/70
[2017-05-22] MEDS: ATORVASTATIN CALCIUM 10MG TABLET PO SCH (20:52)
[2017-05-23] VITALS: BP 123/66
[2017-05-23] MEDS: PIPERACILLIN/TAZ 2.25G PREMIX 50 ML IV SCH ×3 (02:14→18:00)
[2017-05-23 04:00] VITALS: BP 118/59
[2017-05-23] MEDS: NYSTATIN POWDER 15GM TOP PRN (05:28)
[2017-05-23 08:00] VITALS: BP 125/70
[2017-05-23] MEDS: NYSTATIN POWDER 15GM TOP SCH ×3 (09:16→17:00)
[2017-05-23] MEDS: ZINC SULFATE 220 MG ( 50 ) CAPSULE PO SCH (09:17)
[2017-05-23] MEDS: ASPIRIN 81MG EC TABLET PO SCH (09:17)
[2017-05-23] MEDS: CARVEDILOL 25MG TABLET PO SCH ×2 (09:17→20:44)
[2017-05-23] MEDS: FOLIC ACID/VITAMIN B COMP W-C TABLET PO SCH (09:17)
[2017-05-23] MEDS: CLOPIDOGREL 75MG TABLET PO SCH (09:17)
[2017-05-23] MEDS: DORZOLAMIDE 2% OPHTH 10 ML BOTTLE EACHEYE SCH (09:17)
[2017-05-23] MEDS: FAMOTIDINE 20MG TABLET PO SCH (09:17)
[2017-05-23] MEDS: CALCIUM CARBONATE 1250MG TABLET (500MG ELEMENTAL CALCIUM) PO SCH ×2 (09:19→17:00)
[2017-05-23] MEDS: DUTASTERIDE 0.5MG CAPSULE PO SCH (09:19)
[2017-05-23 12:00] VITALS: BP 126/68
[2017-05-23 16:00] VITALS: BP 130/78
[2017-05-23] MEDS: ATORVASTATIN CALCIUM 10MG TABLET PO SCH (20:44)
[2017-05-23 21:31] VITALS: BP 125/57
[2017-05-24] MEDS ORDERED: SULFAMETHOXAZOLE/TRIMETHOPRIM 800/160MG TABLET PO SCH (09:00)
== END 2017-05-23 22:30 | DRG 871 ==
LOC: ER 08:33 → 7WST 10:52 → EDBEDREQ 10:54 → EDBEDREQSVC 10:54 → ENRESERV 11:24
PROVIDERS: ADMIT Internal Medicine; ATTEND Internal Medicine
PROC: 5A1D60Z (ICD-10-PCS; principal; 2017-05-06)
DX: A41.9 Sepsis, unspecified organism (principal); N18.6 End stage renal disease; J69.0 Pneumonitis due to inhalation of food and vomit; E43 Unspecified severe protein-calorie malnutrition; J96.20 Acute and chronic respiratory failure, unspecified whether with hypoxia or hypercapnia; N39.0 Urinary tract infection, site not specified; L97.419 Non-pressure chronic ulcer of right heel and midfoot with unspecified severity; L97.429 Non-pressure chronic ulcer of left heel and midfoot with unspecified severity; E87.1 Hypo-osmolality and hyponatremia; R64 Cachexia; I13.2 Hypertensive heart and chronic kidney disease with heart failure and with stage 5 chronic kidney disease, or end stage renal disease; Z68.1 Body mass index [BMI] 19.9 or less, adult; E87.5 Hyperkalemia; E83.51 Hypocalcemia; D63.8 Anemia in other chronic diseases classified elsewhere; E86.1 Hypovolemia; I95.9 Hypotension, unspecified; B96.20 Unspecified Escherichia coli [E. coli] as the cause of diseases classified elsewhere; D69.6 Thrombocytopenia, unspecified; E78.00 Pure hypercholesterolemia, unspecified; E78.5 Hyperlipidemia, unspecified; E87.6 Hypokalemia; I25.10 Atherosclerotic heart disease of native coronary artery without angina pectoris; J44.9 Chronic obstructive pulmonary disease, unspecified; I50.9 Heart failure, unspecified; E11.22 Type 2 diabetes mellitus with diabetic chronic kidney disease; E11.51 Type 2 diabetes mellitus with diabetic peripheral angiopathy without gangrene; E11.622 Type 2 diabetes mellitus with other skin ulcer; L98.429 Non-pressure chronic ulcer of back with unspecified severity; Z99.2 Dependence on renal dialysis; Z93.1 Gastrostomy status; Z95.810 Presence of automatic (implantable) cardiac defibrillator; Z79.82 Long term (current) use of aspirin; Z79.899 Other long term (current) drug therapy
CPT/HCPCS: 36415; 36600; 71010; 80048; 80053; 80061; 81001; 82040; 82306; 82375; 82378; 82805; 82962; 83605; 83735; 84100; 84153; 84439; 84443; 84480; 85025; 85027; 85610; 85651; 87040; 87070; 87077; 87086; 87106; 87186; 93005; 94640; 94664; 96374; 96375; 97162; 99285; A6261; J0690; J0696; J0885; J1644; J1815; J1940; J1956; J2405; J2543; J3490; J7030; J7040; J7042; J7050; J7060; J7131; J7611